=== PATIENT | male | born 1955 | race Caucasian/White ===

== ENCOUNTER 2021-01-31 11:19 | Inpatient (IN) | payer OTHER ==
[2021-01-31] MEDS ORDERED: HYDROmorphone 0.5 MG/0.5 ML SYRINGE IVP STA (11:47)
[2021-01-31] MEDS ORDERED: SODIUM CHLORIDE 0.9% 1,000 ML IV STA (11:47)
[2021-01-31] MEDS ORDERED: SODIUM CHLORIDE 0.9% 500 ML 500 ML IV STA (11:47)
[2021-01-31 12:06] LABS: Basophils % (A) 0 %; Eosinophils # (A) 0.1 k/uL (0-0.7); Eosinophils % (A) 1 %; HCT 40.9 % (39.0-53.0); HGB 14.3 gm/dL (13.0-17.5); Lymphocytes # (A) 1.7 k/uL (1.0-4.8); Lymphocytes % (A) 18 %; MCH 30.6 pg (25.0-35.0); MCV 87.4 fL (80.0-100.0); Mean Platelet Volume 6.6; Monocytes # (A) 0.6 k/uL (0-1.0); Monocytes % (A) 6 %; Neutrophils # (A) 7.1 k/uL (1.3-7.7); Neutrophils % (A) 73 %; Platelet Count 448 k/uL (150-450); RBC 4.68 m/uL (4.30-5.90); RDW 13.6 % (11.5-15.5); WBC 9.7 k/uL (3.8-10.6)
[2021-01-31] MEDS ORDERED: NALOXONE 0.4 MG/ML 1 ML VIAL IV PRN (12:11)
[2021-01-31] MEDS ORDERED: ACETAMINOPHEN TAB 325 MG TAB PO PRN (12:11)
[2021-01-31 12:15] LABS: INR 1.1 (<1.2); Prothrombin Time 11.2 sec (9.0-12.0)
--- NOTE | 2021-01-31 12:16 | ED ---
General Adult HPI - General Chief complaint: Abdominal Pain Stated complaint: Sent by dr to be admitted Time Seen by Provider: 01/31/21 11:40 Source: patient, RN notes reviewed, old records reviewed Mode of arrival: ambulatory Limitations: no limitations - History of Present Illness Initial comments: 65-year-old male presenting for evaluation of abdominal pain, poor appetite, and liver mass. This was found on outpatient testing. He was seen by the oncology office today and sent in for evaluation and treatment. He was sent for intractable abdominal pain as well as further workup needed regarding this liver mass. He has a remote history of prostate cancer. Patient denies fever. He has had both generalized as well as right upper quadrant and epigastric abdominal pain. He had outpatient imaging performed. These results are not available at the time my initial evaluation. - Related Data Allergies Allergy/AdvReac Type Severity Reaction Status Date / Time No Known Allergies Allergy Verified 01/31/21 11:37 Review of Systems ROS Statement: Those systems with pertinent positive or pertinent negative responses have been documented in the HPI. ROS Other: All systems not noted in ROS Statement are negative. Past Medical History Past Medical History: Cancer, Prostate Disorder History of Any Multi-Drug Resistant Organisms: None Reported Past Surgical History: Prostate Surgery Past Psychological History: No Psychological Hx Reported Smoking Status: Current every day smoker Past Alcohol Use History: None Reported Past Drug Use History: None Reported General Exam Limitations: no limitations General appearance: alert, in no apparent distress Head exam: Present: atraumatic, normocephalic Eye exam: Present: normal appearance, PERRL ENT exam: Present: mucous membranes dry Neck exam: Present: normal inspection. Absent: tenderness, meningismus Respiratory exam: Present: normal lung sounds bilaterally. Absent: respiratory distress, wheezes Cardiovascular Exam: Present: regular rate, normal rhythm GI/Abdominal exam: Present: soft, distended, tenderness (Right upper quadrant and epigastric). Absent: guarding, rebound Extremities exam: Present: normal inspection, normal capillary refill. Absent: pedal edema, calf tenderness Neurological exam: Present: alert, oriented X3, CN II-XII intact. Absent: motor sensory deficit Psychiatric exam: Present: normal affect, normal mood Skin exam: Present: warm, dry, intact. Absent: cyanosis, diaphoretic Course Vital Signs 01/31/21 11:34 Temperature 98.2 F Pulse Rate 91 Respiratory 20 Rate Blood Pressure 134/74 O2 Sat by Pulse 99 Oximetry Medical Decision Making - Medical Decision Making Liza covering for oncology and contacted myself prior to patient's arrival regarding plan for admission, pain control, and further workup. Patient has been admitted to Dr. Packer who is aware of the patient with oncology on consult. Laboratory testing has been obtained, results are pending. - Lab Data Result diagrams: 01/31/21 11:55 Lab Results 01/31/21 Range/Units 11:55 WBC 9.7 (3.8-10.6) k/uL RBC 4.68 (4.30-5.90) m/uL Hgb 14.3 (13.0-17.5) gm/dL Hct 40.9 (39.0-53.0) % MCV 87.4 (80.0-100.0) fL MCH 30.6 (25.0-35.0) pg MCHC 35.0 (31.0-37.0) g/dL RDW 13.6 (11.5-15.5) % Plt Count 448 (150-450) k/uL MPV 6.6 Neutrophils % 73 % Lymphocytes % 18 % Monocytes % 6 % Eosinophils % 1 % Basophils % 0 % Neutrophils # 7.1 (1.3-7.7) k/uL Lymphocytes # 1.7 (1.0-4.8) k/uL Monocytes # 0.6 (0-1.0) k/uL Eosinophils # 0.1 (0-0.7) k/uL Basophils # 0.0 (0-0.2) k/uL Disposition Clinical Impression: Abdominal pain, Dehydration, Liver mass Disposition: ADMITTED IP TO THIS HOSP Condition: Stable Is patient prescribed a controlled substance at d/c from ED?: No Referrals: Stephanie Salcedo DO [Primary Care Provider] - 1-2 days Decision to Admit Reason: Admit from EC Decision Date: 01/31/21 Decision Time: 12:16
[2021-01-31 12:30] LABS: ALT 8 U/L (4-49); AST 26 U/L (17-59); African American GFR (CKD) >90 (>60 ml/min/1.73 sqM); Albumin 4.1 g/dL (3.5-5.0); Alkaline Phosphatase 100 U/L (38-126); Amylase 61 U/L (30-110); Anion Gap 13 mmol/L; Blood Urea Nitrogen 17 mg/dL (9-20); Calcium 9.7 mg/dL (8.4-10.2); Carbon Dioxide 26 mmol/L (22-30); Chloride 93 mmol/L (98-107); Glucose 79 mg/dL (74-99); Lipase 53 U/L (23-300); Non-African American GFR(CKD) >90 (>60 ml/min/1.73 sqM); Potassium 4.7 mmol/L (3.5-5.1); Sodium 132 mmol/L (137-145); Total Bilirubin 0.6 mg/dL (0.2-1.3); Total Protein 7.6 g/dL (6.3-8.2)
[2021-01-31] MEDS: SODIUM CHLORIDE 0.9% 1,000 ML IV SCH ×2 (12:37→21:20)
[2021-01-31] MEDS ORDERED: ALPRAZolam 0.25 MG TAB PO PRN (14:11)
[2021-01-31] MEDS ORDERED: TEMAZEPAM 15 MG CAP PO PRN (14:11)
[2021-01-31] MEDS ORDERED: RX INFO: IV CONTRAST WAS GIVEN 1 EACH MISC MISCELLANE PRN (15:01)
--- NOTE | 2021-01-31 15:07 | P.CONS ---
History of Present Illness - Reason for Consult Consult date: 01/31/21 Metastatic Cancer Requesting physician: Bubba Mckeon - Chief Complaint Intractable pain, nausea and constipation - History of Present Illness Mr. Wheatley is a 65 year old patient who was referred to Dr. Kevon Cohen at our [facility] office for evaluation of prostate cancer. On his initial visit he presented with diffuse abdominal pain, not controlled on current home regimen for pain. Admitted to constipation and nausea. Further details regarding his history of prostate cancer will follow after I receive records from [facility]. He did have a recent CT scan abdomen and Pelvis at [facility] (also requested) which revealed per Dr. Cohen left adrenal mass and adenopathy in abdomen. He has been admitted for further staging, biopsy for tissue diagnosis and pain management. Discussed in detail with primary team and with Emergency Department attending. Review of Systems All systems: negative Constitutional: Reports as per HPI Past Medical History Past Medical History: Cancer, Prostate Disorder History of Any Multi-Drug Resistant Organisms: None Reported Past Surgical History: Prostate Surgery Past Psychological History: No Psychological Hx Reported Smoking Status: Current every day smoker Past Alcohol Use History: None Reported Past Drug Use History: None Reported - Past Family History Father Family Medical History: Cancer Additional Family Medical History / Comment(s): prostate cancer Brother(s) Family Medical History: Cancer Additional Family Medical History / Comment(s): prostate cancer Medications and Allergies Home Medications Medication Instructions Recorded Confirmed Type traMADol HCl [Ultram] 50 mg PO BID@1500,2100 01/31/21 01/31/21 History traMADol HCl [Ultram] 100 mg PO DAILY 01/31/21 01/31/21 History Allergies Allergy/AdvReac Type Severity Reaction Status Date / Time No Known Allergies Allergy Verified 01/31/21 13:11 Physical Exam Vitals: Vital Signs Temp Pulse Resp BP Pulse Ox 01/31/21 11:34 98.2 F 91 20 134/74 99 Intake and Output 01/31/21 01/31/21 01/31/21 06:59 14:59 22:59 Other: Weight 58.06 kg - Constitutional General appearance: cooperative, no acute distress - EENT Eyes: EOMI ENT: hard of hearing, NA/AT - Respiratory Respiratory: bilateral: diminished - Gastrointestinal General gastrointestinal: soft, tenderness - Integumentary Integumentary: pale - Neurologic Neurologic: CNII-XII intact - Musculoskeletal Musculoskeletal: generalized weakness - Psychiatric Psychiatric: A&O x's 3 Results CBC & Chem 7: 02/01/21 04:50 02/01/21 04:50 Labs: Abnormal Lab Results - Last 24 Hours (Table) 01/31/21 Range/Units 11:55 Sodium 132 L (137-145) mmol/L Chloride 93 L (98-107) mmol/L CT scan - chest: report reviewed Assessment and Plan (1) Constipation Current Visit: Yes Status: Acute Code(s): K59.00 - CONSTIPATION, UNSPECIFIED SNOMED Code(s): 97740844 (2) Left adrenal mass Current Visit: Yes Status: Acute Code(s): E27.8 - OTHER SPECIFIED DISORDERS OF ADRENAL GLAND SNOMED Code(s): 689942119 (3) Prostate CA Current Visit: Yes Status: Acute Code(s): C61 - MALIGNANT NEOPLASM OF PROSTATE SNOMED Code(s): 756609563 (4) Abdominal pain Current Visit: Yes Status: Acute Code(s): R10.9 - UNSPECIFIED ABDOMINAL PAIN SNOMED Code(s): 44993199 (5) Lung mass Current Visit: Yes Status: Acute Code(s): R91.8 - OTHER NONSPECIFIC ABNORMAL FINDING OF LUNG FIELD SNOMED Code(s): 138030034 Plan: Pallaiitive Pain Controll and scheduled bowel regimen for narcotic induced constipation Biopsy of left adrenal mass - IR COnsult Placed CT CHest for completed staging IV DIlaudid for fast acting at this time and Fentanyl long acting patch started CT scan of chest was reviewed: Right suprahilar 5x5cm mass revealed as well as thoracic adenopathy. Interventional radiology has been consulted, he has been made NPO after midnight and a biopsy of left adrenal mass and lung mass (primary importance for tissue biopsy) has been requested for Thursday. With history of prostate cancer obtaining biopsy of adrenal met would be beneficial to confirm metastatic malignancy source if a diagnosis of two primary cancers found. An MRI of the brain has also been ordered.
--- NOTE | 2021-01-31 16:31 | CT ---
EXAMINATION TYPE: CT chest w con DATE OF EXAM: 01/31/2021 COMPARISON: No comparison studies at this location. HISTORY: no chest complaints, staging metastatic cancer CT DLP: 262 mGycm, Automated exposure control for dose reduction was used. CONTRAST: Performed injected with 100 mL of Isovue 300. TECHNIQUE: Axial images were obtained at 5 mm thick sections. Reconstructed images are reviewed on [employer] computer in the coronal plane. FINDINGS: Portion of the thyroid visualized is normal. There is a 0.7 cm nodule in the lateral left apex. Note is made of a calcified nodule at the superior left medial lung apex. There is a spiculated mass measuring 3.9 x 5.0 x 5.2 cm in the right suprahilar soft tissue abnormali ty is seen in the hilar region can be related to direct extension or lymphadenopathy region. There is a 1.1 cm enlarged pretracheal lymph node. Prominent aortopulmonic window lymph node is pres ent measuring 1.2 cm. Subcarinal lymph node is present measuring 1.0 cm. Right hilar adenopathy is pr esent. The ascending aorta diameter at the level of the main pulmonary artery is 3.5 cm. The main pu lmonary artery diameter at the bifurcation is 2.[address] sections are obtained through the upper abdomen. Left adrenal gland is enlarged measuring 2.1 cm. This may extend towards the superior mesenteric artery. Right adrenal gland has some mild pro minent superiorly. Retrocrural adenopathy is present, the largest measures 0.9 cm. Some periaortic a denopathy appears to be present. IMPRESSIONS: 1. Large right suprahilar mass with multiple mediastinal and intra-abdominal periaortic lymph nodes s uspicious for neoplasm. Metastasis to the right adrenal gland likely present. Direct extension or me tastasis to the right hilar lymph nodes may be present. Left apical nodule may be a metastatic lesion . PET/CT recommended for additional workup. A [place] level critical message alert has been initiated for Cristo Packer MD via the [employer] Critical Results System on 01/31/2021 4:25 PM. This message alert has been sent to Cristo Packer MD via the preferences provided by the clinician for the receipt of Radiology Critical Findings. Message ID [id number].
[2021-01-31] MEDS: HYDROmorphone 0.5 MG/0.5 ML SYRINGE IVP PRN (16:41)
--- NOTE | 2021-01-31 16:47 | HP ---
HISTORY AND PHYSICAL DATE OF SERVICE: 01/31/2021 CHIEF COMPLAINTS: Abdominal pain. HISTORY OF PRESENT ILLNESS: This 65-year-old gentleman with a past medical history of multiple medical problems, including prostate disorder and prostate cancer and surgery. Recently was suspected to have malignancy and possibly with mets with possibly primary from pancreatitis. The patient is followed by Dr. Cohen in the outpatient setting, and the patient went to Dr. Cohen's office today. The patient was supposed to have an outpatient PET scan also. Dr. Cohen recommended biopsy of the liver lesion and the patient is being directed to [facility] for further evaluation and treatment of the pain issues and also to arrange the liver biopsy as well. There is no history of fever, rigors. No headache, loss of consciousness, seizures. PAST MEDICAL HISTORY: History of prostate cancer and surgery. MEDICATIONS ARE: Ultram 50 mg p.o. b.i.d. ALLERGIES: None. FAMILY HISTORY: No history of heart disease or strokes in the family. SOCIAL HISTORY: History of smoking. No history of alcohol intake. REVIEW OF SYSTEMS: ENT: No diminished vision or hearing. CARDIOVASCULAR: No angina or palpitations. RESPIRATORY: No cough. GI: As mentioned earlier. : As mentioned earlier. NERVOUS SYSTEM: No numbness or weakness. ALLERGY/IMMUNOLOGY: No asthma or hayfever. MUSCULOSKELETAL: As mentioned earlier. HEMATOLOGY: No history of anemia. ENDOCRINE: No history of diabetes or hypothyroidism. CONSTITUTIONAL: As mentioned earlier. DERMATOLOGY: Negative. RHEUMATOLOGY: Negative. PSYCHIATRY: As mentioned earlier. ONCOLOGY: As mentioned earlier. PHYSICAL EXAMINATION: GENERAL: Patient is alert and oriented times three. VITAL SIGNS: Pulse 91, blood pressure 134/74, respirations 20, temperature 98.2, pulse ox 99% on room air. HEENT: Conjunctivae normal. Oral mucosa moist. NECK: No jugular venous distention. No carotid bruits. No lymph node enlargement. RESPIRATORY: Breath sounds diminished at the bases. No rhonchi, no crackles. HEART: S1 and S2, muffled. ABDOMEN: Soft. Healed scar around the umbilicus present, otherwise, mild diffuse tenderness in the epigastrium. Liver is palpable. No other masses palpable. No ascites. Bowel sounds present. EXTREMITIES: No edema, no swelling. NERVOUS: Higher functions as mentioned earlier. Moves all four limbs. No focal motor or sensory deficits. LYMPHATICS: No lymph nodes palpable in the neck or axillae. SKIN: No rashes. JOINTS: No active deforming arthropathy. LABS: CBC within normal limits and INR is 1.1, sodium 132. ASSESSMENT: 1. Abdominal pain with possibly metastatic malignancy with liver lesions, rule out pancreatic primary. Possible liver biopsy. 2. History of prostate cancer and surgery. 3. Hyponatremia. 4. History of nicotine dependence. 5. FULL CODE. RECOMMENDATION AND DISCUSSION: This 65-year-old gentleman who presented with multiple complex medical issues, we will monitor the patient closely. Continue the current medications, symptomatic treatment. Pain management. Hematology/Oncology evaluation. Possible liver biopsy tomorrow. Otherwise prognosis guarded because of multiple complex medical issues. Further recommendations to follow. MMODL / IJN: [id number] /
[2021-01-31] MEDS: HEPARIN SODIUM,PORCINE/PF 5,000 UNIT/0.5 ML SYRINGE SQ SCH (21:45)
[2021-01-31] MEDS: HYDROcodone/APAP 5-325MG 1 EACH TAB PO PRN (21:47)
[2021-01-31] MEDS: SENNOSIDES-DOCUSATE SODIUM 1 EACH TAB PO SCH (21:48)
[2021-02-01 05:02] LABS: Basophils % (A) 1 %; Eosinophils # (A) 0.2 k/uL (0-0.7); Eosinophils % (A) 2 %; HGB 13.3 gm/dL (13.0-17.5); Lymphocytes # (A) 1.7 k/uL (1.0-4.8); Lymphocytes % (A) 20 %; MCH 30.7 pg (25.0-35.0); MCV 87.9 fL (80.0-100.0); Mean Platelet Volume 6.6; Monocytes # (A) 0.9 k/uL (0-1.0); Monocytes % (A) 10 %; Neutrophils # (A) 5.6 k/uL (1.3-7.7); Neutrophils % (A) 66 %; Platelet Count 364 k/uL (150-450); RBC 4.33 m/uL (4.30-5.90); RDW 13.4 % (11.5-15.5); WBC 8.5 k/uL (3.8-10.6)
[2021-02-01 05:48] LABS: Appearance,Urine Clear (Clear); Bilirubin,Urine Negative (Negative); Blood,Urine Negative (Negative); Color,Urine Yellow; Glucose,Urine (UA) Negative (Negative); Ketones,Urine 2+ (Negative); Leukocyte Esterase,Urine Negative (Negative); Nitrite,Urine Negative (Negative); PH, Urine 5.5 (5.0-8.0); Protein,Urine Negative (Negative); Urobilinogen,Urine <2.0 mg/dL (<2.0)
[2021-02-01] MEDS: SODIUM CHLORIDE 0.9% 1,000 ML IV SCH (08:26)
[2021-02-01] MEDS: HEPARIN SODIUM,PORCINE/PF 5,000 UNIT/0.5 ML SYRINGE SQ SCH ×2 (08:27→20:02)
[2021-02-01] MEDS: PANTOPRAZOLE 40 MG/10 ML VIAL IV SCH (08:28)
[2021-02-01] MEDS: polyethylene glycoL 3350 17 GM POWD.PACK PO SCH (08:28)
[2021-02-01] MEDS: SENNOSIDES-DOCUSATE SODIUM 1 EACH TAB PO SCH ×2 (08:28→20:08)
[2021-02-01 09:53] LABS: African American GFR (CKD) 123.1 (60.0-200.0); Albumin 3.4 g/dL (3.80-4.90); Albumin/Globulin Ratio 1.31 (1.60-3.17); Anion Gap 9.7 mmol/L (4.00-12.00); BUN/Creat Ratio 16.67 Ratio (12.00-20.00); Calcium 8.4 mg/dL (8.7-10.3); Carbon Dioxide 26.3 mmol/L (21.6-31.8); Globulin 2.6 g/dL (1.6-3.3); Magnesium 1.6 mg/dL (1.5-2.4); Non-African American GFR(CKD) 106.3 (60.0-200.0); Potassium 4.2 mmol/L (3.5-5.5); Total Bilirubin 0.4 mg/dL (0.2-1.2)
--- NOTE | 2021-02-01 11:38 | MR ---
EXAMINATION TYPE: MR brain wo con DATE OF EXAM: 02/01/2021 COMPARISON: No brain comparisons. Correlative study includes CT chest 01/31/2021. HISTORY: Staging for likely metastatic Lung Cancer TECHNIQUE: Multiplanar, multisequence images of the brain and brainstem is performed without IV contrast. Patien t indicates exam prior to gadolinium administration and postcontrast imaging, unable to continue due to claustrophobia. FINDINGS: There is motion artifact. Patient indicated exam prior to gadolinium administration and postcontrast imaging due to claustrophobia. Lack of IV contrast limits evaluation for metastases. Within the left frontal lobe there is a 2.0 x 1.8 cm lesion with peripheral restricted diffusion, and marked surrounding vasogenic edema . There is a 6 mm T2 hyperintense lesion of the left temporal lob e with restricted diffusion (501:17, 305:136). There is a 7 mm T2 hyperintense lesion of the right fr ontal lobe with restricted diffusion (501:21, 305:168). There is vasogenic edema of the left temporo- occipital region without definitive lesion, although the cortex in this region is somewhat abnormal a nd T2 weighted imaging (401:13). There is also T2 hyperintense edema of the right cerebellum without discrete lesion. There are moderate periventricular, subcortical, and deep white matter T2 FLAIR hyperintense foci, wh ich do not demonstrate restricted diffusion. No extra-axial fluid collection. No ventriculomegaly or midline shift. Midline structures demonstrate normal morphology. Sinuses and mastoid air cells are clear. Globes are grossly symmetric. IMPRESSION: 1. Examination not completed due to patient claustrophobia. No postcontrast imaging was obtained. 2. Multiple regions most likely representing metastases are seen. There are masses, vasogenic edema, and foci of T2 hyperintensity with restricted diffusion as above. 3. Recommend completion of baseline postcontrast imaging of the brain for future comparisons and asse ssment of treatment response.
[2021-02-01 12:02] VITALS: BMI 20.3
--- NOTE | 2021-02-01 15:31 | P.OP ---
Date of Procedure: 02/01/21 Preoperative Diagnosis: left adrenal mass Postoperative Diagnosis: same Procedure(s) Performed: CT-GUIDED LEFT ADRENAL MASS BIOPSY Anesthesia: local Surgeon: Susan Molina Estimated Blood Loss (ml): 1 Pathology: other (HISTOPATHOLOGY) Condition: stable Disposition: floor Description of Procedure: LEFT ADRENAL MASS TARGETED FOR CT-GUIDED CORE BIOPSY. 2 18G CORE SPECIMENS OBTAINED.
--- NOTE | 2021-02-01 16:14 | CT ---
EXAMINATION TYPE: CT biopsy adrenal gland DATE OF EXAM: 02/01/2021 HISTORY: Left adrenal mass. Lung masses. History of prostate cancer. COMPARISON: CT chest 01/31/2021. Informed consent was obtained by Dr. Susan Molina prior to procedure. Risks, benefits, and altern atives discussed with the patient. All patient questions were answered. Patient was originally placed prone. Preliminary CT imaging demonstrated left adrenal mass with signi ficant overlying lung. The patient was then placed left lateral decubitus. Preliminary CT imaging dem onstrated a safer course with less overlying lung to the left adrenal mass. The skin overlying a suit able path to the left adrenal mass was localized using CT and the overlying skin was prepped and drap ed utilizing maximal barrier technique. Lidocaine used for local anesthesia. A small skin brissa was ma de with a scalpel. Using CT guidance, access was gained to the lesion with a 17-gauge introducer need le. The stylet was removed and an 18-gauge coaxial core biopsy needle was advanced into the left adre nal mass. Core specimen(s) submitted in formalin for histopathology. 2 pass(es) performed in all. All needles were removed and sterile bandage was applied. Postprocedure CT imaging demonstrated no evidence of significant hemorrhage or pneumothorax. Patient tolerated procedure well with no immediate complications. Patient is discharged from the radiology de partment, back to floor, in stable condition. IMPRESSION: SUCCESSFUL CT GUIDED LEFT ADRENAL MASS 18G CORE BIOPSY. PATHOLOGY PENDING.
[2021-02-01] MEDS: HYDROcodone/APAP 5-325MG 1 EACH TAB PO PRN (19:12)
--- NOTE | 2021-02-01 20:06 | PN ---
PROGRESS NOTE DATE OF SERVICE: 02/01/2021 This 65-year-old gentleman with abdominal pain has multiple lesions. Patient also has chest lesions in the CT scan chest, also. The patient underwent a CT-guided needle biopsy by Radiology. Final pathology is pending at this time. No chest pain. No palpitations. No fever. PHYSICAL EXAMINATION: Alert and oriented x4. Pulse 61, blood pressure 140/60, respiration 14 temperature is 98 degrees, pulse ox 98% on room air. HEENT: Conjunctivae normal. CARDIAC: Murmur. RESPIRATION: Breath sounds diminished at the bases. No rhonchi. No crackles. ABDOMEN: Soft. NEUROLOGIC: Nonfocal. LAB STUDIES: At this time shows WBC 8.2, hemoglobin 13.2, sodium 133. ASSESSMENT: 1. Abdominal pain with possible metastatic malignancy, primary unknown. 2. Adrenal mass, status post adrenal biopsy. 3. Right lung lesion and rule out primary malignancy or METS. 4. History of prostate cancer surgery. 5. Hyponatremia. 6. History nicotine dependence. 7. FULL CODE. RECOMMENDATIONS AND DISCUSSION: I recommend to continue current medications, symptomatic treatment. Otherwise, adrenal biopsy has been done. Discussed with Dr. Matta. We will continue to monitor. Depending upon the biopsy report, the patient might also need a radiology-guided lung biopsy according to Dr. Matta, but he will follow the patient. Prognosis guarded. Further recommendations to follow. Continue the pain management MMODL / SANDIEN: [id number] /
--- NOTE | 2021-02-01 20:29 | P.PN ---
Subjective Progress Note Date: 02/01/21 Principal diagnosis: Suspicion for metastatic cancer Adrenal mass biopsy today, await results. Suspect a metastatic lung cancer, if this reveals a different primary will need biopsy of lung. Objective - Vital Signs Vital signs: Vital Signs Temp 98 F 02/01/21 15:42 Pulse 73 02/01/21 18:00 Resp 14 02/01/21 15:42 BP 146/71 02/01/21 18:00 Pulse Ox 94 L 02/01/21 16:42 Intake & Output 02/01/21 02/01/21 02/02/21 06:59 18:59 06:59 Intake Total 650 900 Output Total 500 Balance 150 900 Weight 58.06 kg 58.06 kg Intake: Intake, IV Titration 650 900 Amount Sodium Chloride 0.9% 1, 650 900 000 ml @ 75 mls/hr IV . [id number] [facility] Rx#:[id number] Output: Urine 500 Other: Voiding Method Urinal Urinal - Exam - Constitutional General appearance: cooperative, no acute distress - EENT Eyes: EOMI ENT: hard of hearing, NA/AT - Respiratory Respiratory: bilateral: diminished - Gastrointestinal General gastrointestinal: soft, tenderness - Integumentary Integumentary: pale - Neurologic Neurologic: CNII-XII intact - Musculoskeletal Musculoskeletal: generalized weakness - Psychiatric Psychiatric: A&O x's - Labs CBC & Chem 7: 02/01/21 04:50 02/01/21 04:50 Labs: Abnormal Lab Results - Last 24 Hours (Table) 02/01/21 02/01/21 02/01/21 Range/Units 04:50 04:50 05:00 Hct 38.0 L (39.0-53.0) % Sodium 133 L (135-145) mmol/L Osmolality 276 L (280-301) mosm/kg Calcium 8.4 L (8.7-10.3) mg/dL ALT 8 L (10-49) U/L Total Protein 6.0 L (6.2-8.2) g/dL Albumin 3.40 L (3.80-4.90) g/dL Albumin/Globulin Ratio 1.31 L (1.60-3.17) g/dL Urine Ketones 2+ H (Negative) Assessment and Plan (1) Constipation Current Visit: Yes Status: Acute Code(s): K59.00 - CONSTIPATION, UNSPECIFIED SNOMED Code(s): 00782712 (2) Left adrenal mass Current Visit: Yes Status: Acute Code(s): E27.8 - OTHER SPECIFIED DISORDERS OF ADRENAL GLAND SNOMED Code(s): 304692871 (3) Prostate CA Current Visit: Yes Status: Acute Code(s): C61 - MALIGNANT NEOPLASM OF PROSTATE SNOMED Code(s): 194359632 (4) Abdominal pain Current Visit: Yes Status: Acute Code(s): R10.9 - UNSPECIFIED ABDOMINAL PAIN SNOMED Code(s): 63207517 (5) Lung mass Current Visit: Yes Status: Acute Code(s): R91.8 - OTHER NONSPECIFIC ABNORMAL FINDING OF LUNG FIELD SNOMED Code(s): 788658481 Plan: Pallaiitive Pain Controll and scheduled bowel regimen for narcotic induced constipation Biopsy of left adrenal mass - IR COnsult Placed CT CHest for completed staging IV DIlaudid for fast acting at this time and Fentanyl long acting patch started CT scan of chest was reviewed: Right suprahilar 5x5cm mass revealed as well as thoracic adenopathy. Interventional radiology has been consulted, he has been made NPO after midnight and a biopsy of left adrenal mass and lung mass (primary importance for tissue biopsy) has been requested for Thursday. With history of prostate cancer obtaining biopsy of adrenal met would be beneficial to confirm metastatic malignancy source if a diagnosis of two primary cancers found. An MRI of the brain has also been ordered. Status POst biopsy of Adrenal Mass today Re-check PSA Await path to determine if further tissue is needed of lung mass Physician Attest: I have completed the full history and physical and agree with above, dictated as a ascribe.
[2021-02-01] MEDS ORDERED: DEXAMETHASONE SOD PHOSPHATE 10 MG/ML 1 ML VIAL IV STA (20:35)
[2021-02-01] MEDS ORDERED: LORazepam 2 MG/ML INJ IV PRN (23:24)
[2021-02-02] MEDS: DEXAMETHASONE SOD PHOSPHATE 4 MG/ML 1 ML VIAL IV SCH ×4 (00:33→18:00)
[2021-02-02] MEDS: SODIUM CHLORIDE 0.9% 1,000 ML IV SCH (05:19)
[2021-02-02 07:30] LABS: Glucose,Whole Blood 117 mg/dL (75-99)
[2021-02-02] MEDS ORDERED: ONDANSETRON 4 MG/2 ML VIAL IVP PRN (08:32)
[2021-02-02] MEDS ORDERED: ONDANSETRON 4 MG/2 ML VIAL IVP STA (08:32)
[2021-02-02] MEDS: HEPARIN SODIUM,PORCINE/PF 5,000 UNIT/0.5 ML SYRINGE SQ SCH ×2 (08:36→21:41)
[2021-02-02] MEDS: SENNOSIDES-DOCUSATE SODIUM 1 EACH TAB PO SCH ×2 (08:36→21:41)
[2021-02-02] MEDS: PANTOPRAZOLE 40 MG/10 ML VIAL IV SCH (08:37)
[2021-02-02] MEDS: polyethylene glycoL 3350 17 GM POWD.PACK PO SCH (08:37)
--- NOTE | 2021-02-02 10:25 | MR ---
EXAMINATION TYPE: MR brain w con DATE OF EXAM: 02/02/2021 COMPARISON: 02/01/2021 HISTORY: Brain lesions CONTRAST: Performed utilizing 6 ml mL intravenous Gadavist gadolinium contrast. TECHNIQUE: Multiplanar, multiecho imaging on a 3.0 Maeve magnet is performed through the brain. Stud y is performed within 24 hours of arrival to the hospital. The craniovertebral junction is normal. The pituitary is not well visualized on this exam. Exam is limited with only post contrast axial coronal and sagittal plane images. There is a 1.0 x 1.4 x 1.4 cm enhancing lesion within the right cerebellum adjacent to the cerebellar peduncle. Hypointensity is adjacent T1 sequences suggesting some vasogenic edema. There is a dural based 0.9 x 1.3 x 1.2 cm enhancing lesion in the left parietal-occipital junction. S urrounding vasogenic edema appears to be present. This may be dural based. There is a very subtle enhancing lesion within the left limbus, series 701 image 15. Significant vaso genic edema is not identified. Similar lesion measuring 0.7 cm may be within the left frontal region. Series 701 image 20. A subtle area of enhancement may be within the leptomeningeal region on the rig ht measuring 0.7 cm best visualized series 801 image 12, series 901 image 17. A subtle 0.4 cm enhanci ng nodule may be within the posterior left parietal region. Series 701 image 17. There is a large ring-enhancing lesion measuring 2.1 x 2.0 x 2.5 cm within the left frontal lobe. Ser ies 701 image 19. Extensive vasogenic edema is adjacent. IMPRESSIONS: 1. Multiple bilateral supratentorial and infratentorial enhancing lesions discussed above compatible with metastatic disease
--- NOTE | 2021-02-02 11:10 | P.CNNES ---
History of Present Illness Consult date: 02/01/21 Requesting physician: Liza Ferguson Reason for Consult: Metastatic cancer through brain History of Present Illness: Patient is a 65-year-old male otherwise healthy, came to the hospital for evaluation of abdominal pain, poor appetite, liver mass. This was found on outpatient testing. He was seen by the oncology office today and sent for an evaluation and treatment of abdominal mass. Patient has a remote history of prostate cancer. Patient states that he has several pain in the abdomen in the past 1-1/2-2 months. He felt something was wrong with his body. He went to [facility] in [place] underwent computed tomography scan of the abdomen which according to the patient was negative. However per oncology report, it revealed left adrenal mass and adenopathy in the abdomen. He was referred for further st aging, biopsy for tissue diagnosis and pain management. Patient had undergone CT-guided adrenal biopsy today. Computed tomography scan of the chest revealed large right suprahilar mass with multiple mediastinal and intra-abdominal periaortic lymph nodes suspicious for neoplasm. Metastasis to the right adrenal gland likely present. Direct extension of metastasis to the right hilar lymph nodes may be present. Left apical not you may be a metastatic lesion. PET/CT is recommended for additional workup. Patient subsequently underwent MRI of the brain without contrast revealed multiple lesions most likely representing metastasis. These are masses, vasogenic edema and foci of T2 hyperintensity with restricted diffusion. Patient states that she does feel as tired and confused. Denies any headache, no diplopia and no nausea vomiting. Abdominal pain is still there. He just generalized abdominal pain and goes to the chest. Patient denies hypertension, no diabetes. He smoked 1 pack per day since age 22, still smokes. He does not drink alcohol. Review of Systems Positive for weight loss. Denies any fever or chills. Denies headache any problem with the vision, hoarseness, sore throat, dysphagia. Patient complains of abdominal pain, that extends to the chest. No shortness of breath wheezing. Denies diarrhea, has constipation. Denies anxiety depression. Denies problem with control of bowels or bladder. All other review of systems noncontributory. Denies balance issues. Past Medical History Past Medical History: Cancer, Prostate Disorder Additional Past Medical History / Comment(s): prostate cancer no chemo or radiation 2018, History of Any Multi-Drug Resistant Organisms: None Reported Past Surgical History: Prostate Surgery Additional Past Surgical History / Comment(s): prostatectomy Past Anesthesia/Blood Transfusion Reactions: No Reported Reaction Past Psychological History: No Psychological Hx Reported Smoking Status: Current every day smoker Past Alcohol Use History: None Reported Past Drug Use History: None Reported - Past Family History Father Family Medical History: Cancer Additional Family Medical History / Comment(s): prostate cancer Brother(s) Family Medical History: Cancer Additional Family Medical History / Comment(s): prostate cancer Medications and Allergies Home Medications Medication Instructions Recorded Confirmed Type traMADol HCl [Ultram] 50 mg PO BID@1500,2100 01/31/21 01/31/21 History traMADol HCl [Ultram] 100 mg PO DAILY 01/31/21 01/31/21 History Allergies Allergy/AdvReac Type Severity Reaction Status Date / Time No Known Allergies Allergy Verified 01/31/21 13:11 Physical Examination - Vital Signs Vital Signs: Vital Signs Temp Pulse Pulse Resp BP Pulse Ox 02/01/21 19:30 97.2 F L 66 20 139/96 99 02/01/21 18:00 73 146/71 02/01/21 17:30 61 128/58 02/01/21 17:03 127/60 02/01/21 16:42 61 141/59 94 L 02/01/21 16:30 147/56 02/01/21 16:12 59 L 147/56 02/01/21 15:57 61 149/68 99 02/01/21 15:42 98 F 64 14 153/72 98 02/01/21 15:30 70 16 135/89 98 02/01/21 15:02 65 18 157/99 98 02/01/21 14:40 68 18 168/86 97 02/01/21 12:40 98.1 F 64 12 126/58 97 02/01/21 05:01 97.6 F 58 L 16 151/73 98 Intake and Output 02/01/21 02/01/21 02/01/21 06:59 14:59 22:59 Intake Total 650 1000 Output Total 500 Balance 150 1000 Intake: Intake, IV Titration 650 900 Amount Sodium Chloride 0.9% 1, 650 900 000 ml @ 75 mls/hr IV . [id number] [facility] Rx#:[id number] Oral 100 Output: Urine 500 Other: Voiding Method Urinal Weight 58.06 kg Patient is an elderly male, very pleasant, in no acute distress. Francoise ent was asleep when I came to see the patient. On waking up, he was slightly slow mentation, prolonged latency time to answer questions. However then he became more alert. Patient is alert awake oriented to time place and person. Patient has some word finding problem. She could not name the current president. After giving some prompts, he did recall the name. He can name and repeat very well. Knows it is January and the year . Could not recall the name of the hospital. Speech and language functions are normal. Attention, concentration and fund of knowledge is adequate. On cranial examination, pupils are round and reacting to light, visual moore are full on confrontation, extraocular muscles are intact with no nystagmus. Face is symmetric, tongue protrudes to the midline. Palatal elevation and sensation normal, hearing and shoulder shrug normal, facial sensation normal. Shoulder shrug normal. On muscle strength testing, there is right pronator drift and the strength is n ormal in arms and legs distally and proximally, except right shoulder which is weak from ? Shoulder issue. Deep tendon reflexes are 2 in the upper limbs, 2 in the lower limbs and plantars downgoing. Sensory to touch is equal with no neglect. Cerebellar function showed no ataxia for [id number] testing. No dysdiadochokinesia. Tone and bulk of muscles normal. Gait not checked. On general examination, there is no carotid bruit or murmur, S1-S2 audible. Abdomen is soft nontender. Chest is clear. Peripheral pulses are present. No edema. Results - Laboratory Findings CBC and BMP: 02/01/21 04:50 02/01/21 04:50 Abnormal Lab Findings: Abnormal Labs 01/31/21 02/01/21 02/01/21 11:55 04:50 04:50 Hct 38.0 L Sodium 132 L 133 L Chloride 93 L Osmolality 276 L Calcium 8.4 L ALT 8 L Total Protein 6.0 L Albumin 3.40 L Albumin/Globulin Ratio 1.31 L Urine Ketones 02/01/21 05:00 Hct Sodium Chloride Osmolality Calcium ALT Total Protein Albumin Albumin/Globulin Ratio Urine Ketones 2+ H Assessment and Plan Assessment: * Probable metastatic cancer with cerebral metastasis. Primary possibly lung cancer. * Status post adrenal mass biopsy * Tobacco use * Weight loss Plan: * Patient has probable cerebral metastasis. Discussed with patient about results of MRI. Encouraged to complete the MRI of brain with contrast for better evaluation of the extent of cerebral disease. * Patient has been started on Decadron 4 mg every 6 hours. * Patient has risk for seizures due to cerebral metastasis. We will discuss about empirically starting Keppra 500 mg twice a day for seizure prophylaxis as upon MRI brain with contrast results. * Further recommendations awaiting from oncology. * Await adrenal mass biopsy results. * We will follow.
[2021-02-02 12:18] LABS: Glucose,Whole Blood 222 mg/dL (75-99)
[2021-02-02] MEDS: INSULIN ASPART (NovoLOG) 100 UNIT/ML VIAL SQ SCH ×3 (12:52→21:41)
[2021-02-02 17:51] LABS: Glucose,Whole Blood 185 mg/dL (75-99)
[2021-02-02] MEDS: NICOTINE 14MG/24HR PATCH TRANSDERM SCH (18:01)
--- NOTE | 2021-02-02 19:57 | PN ---
PROGRESS NOTE DATE OF SERVICE: 02/02/2021 INTERVAL HISTORY: A 65-year-old gentleman who was admitted for evaluation of multiple METS, has abdominal pain. The patient had adrenal mass and adrenal biopsy. The patient also had a chest lesion. The biopsy results are pending at this time. Patient also had a brain MRI, which is done with contrast today and the brain MRI showed multiple bilateral supratentorial, infratentorial enhancing lesions compatible with metastatic disease. The patient is being closely monitored. Dr. Matta is following the patient closely. The patient is started on dexamethasone. PAST MEDICAL HISTORY: Reviewed. REVIEW OF SYSTEMS: CARDIOVASCULAR SYSTEM: No angina or palpitations. RESPIRATORY SYSTEM: As mentioned earlier. GI: No nausea, vomiting. : No dysuria. NERVOUS SYSTEM: No numbness, weakness. CURRENT MEDICATIONS: Reviewed include Tylenol, Xanax, Decadron, Duragesic patch, Dilaudid, NovoLog doses reviewed. PHYSICAL EXAMINATION: Patient is alert, oriented x3. Pulse 89, blood pressure 129/72, respiration 14, temperature 98.2, pulse ox 97% on room air. HEENT: Conjunctivae normal. NECK: No JVD. RESPIRATION: Breath sounds diminished at the bases, no rhonchi. ABDOMEN: Soft, nontender. LEGS: No edema, no swelling. NERVOUS: Diffusely weak. LABS: WBC 8.2, hemoglobin 13.3, glucose 117 and 222. ASSESSMENT: 1. Abdominal pain with possible MRSA, metastatic malignancy, primary unknown. 2. Adrenal mass, status post adrenal biopsy. 3. Multiple supratentorial infratentorial enhancing lesions in the MRI showing possibly brain METS. 4. Right lung lesion, possible primary malignancy, rule out METS. 5. 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 6. History of prostate cancer surgery. 7. Hyponatremia. 8. History of nicotine dependence. 9. FULL CODE. RECOMMENDATIONS AND DISCUSSION: I recommend to continue current management and will monitor the patient. Repeat labs continue the pain medication. Continue with dexamethasone. Otherwise, monitor closely with Hematology/Oncology. MRI scan reviewed and will stop the IV fluids. DVT prophylaxis. Prognosis guarded because of multiple complex medical issues. Further recommendations to follow. MMODL / IJN: [id number] /
[2021-02-02 20:36] LABS: ALT 10 U/L (4-49); AST 23 U/L (17-59); African American GFR (CKD) >90 (>60 ml/min/1.73 sqM); Albumin 3.3 g/dL (3.5-5.0); Albumin/Globulin Ratio 1.1; Alkaline Phosphatase 84 U/L (38-126); Anion Gap 6 mmol/L; Blood Urea Nitrogen 17 mg/dL (9-20); Calcium 9.1 mg/dL (8.4-10.2); Carbon Dioxide 30 mmol/L (22-30); Chloride 97 mmol/L (98-107); Glucose 180 mg/dL (74-99); Non-African American GFR(CKD) >90 (>60 ml/min/1.73 sqM); Potassium 4.4 mmol/L (3.5-5.1); Sodium 133 mmol/L (137-145); Total Bilirubin 0.2 mg/dL (0.2-1.3); Total Protein 6.3 g/dL (6.3-8.2)
--- NOTE | 2021-02-02 21:16 | P.PN ---
Subjective Progress Note Date: 02/02/21 the patient appeared to be in no distress. He stated that his pain appear to be overall somewhat better. MRI of the brain without contrast, and subsequently with contrast confirmed multiple brain metastasis. He denies any headache or nausea at this time. Objective - Vital Signs Vital signs: Vital Signs Temp 98.2 F 02/02/21 20:53 Pulse 65 02/02/21 20:53 Resp 16 02/02/21 20:53 BP 106/62 02/02/21 20:53 Pulse Ox 97 02/02/21 20:53 Intake & Output 02/02/21 02/02/21 02/03/21 06:59 18:59 06:59 Intake Total 200 Balance 200 Intake: Oral 200 Other: Voiding Method Toilet # Voids 2 1 - Constitutional General appearance: Present: no acute distress - EENT Eyes: Present: EOMI ENT: Present: hearing grossly normal, normal oropharynx - Respiratory Respiratory: bilateral: diminished - Cardiovascular Rhythm: regular Heart sounds: normal: S1, S2 - Gastrointestinal General gastrointestinal: Present: normal bowel sounds, soft - Integumentary Integumentary: Present: normal - Neurologic Neurologic: Present: CNII-XII intact - Musculoskeletal Musculoskeletal: Present: generalized weakness, strength equal bilaterally - Psychiatric Psychiatric Comment(s): comprehension and the colon appear to be definitely somewhat slow Psychiatric: Present: A&O x's 3 - Labs CBC & Chem 7: 02/01/21 04:50 02/02/21 19:32 Labs: Abnormal Lab Results - Last 24 Hours (Table) 02/02/21 02/02/21 02/02/21 Range/Units 07:28 12:13 17:49 Sodium (137-145) mmol/L Chloride (98-107) mmol/L Glucose (74-99) mg/dL POC Glucose (mg/dL) 117 H 222 H 185 H (75-99) mg/dL Albumin (3.5-5.0) g/dL 02/02/21 Range/Units 19:32 Sodium 133 L (137-145) mmol/L Chloride 97 L (98-107) mmol/L Glucose 180 H (74-99) mg/dL POC Glucose (mg/dL) (75-99) mg/dL Albumin 3.3 L (3.5-5.0) g/dL Assessment and Plan (1) Brain metastases Narrative/Plan: the patient was confirmed, unfortunately, to have multiple brain metastasis on MRI without contrast, and subsequently on the contrast study also. This did not show any evidence of significant midline shift hemorrhage. The patient does have somewhat slowed comprehension and recall, but seems to be otherwise asymptomatic. - Results and implications were discussed in detail with him. He has been started on IV steroids. Radiation oncology has been consulted. - I also discussed with him that the presence of multiple brain metastasis furt her supports that his current presentation is due to a malignancy different than his history of prostate cancer, most likely a lung primary. Current Visit: Yes Status: Acute Code(s): C79.31 - SECONDARY MALIGNANT NEOPLASM OF BRAIN SNOMED Code(s): 43407055 (2) Lung mass Narrative/Plan: but, at this time differential is most likely an aggressive primary lung malignancy, with metastasis to mediastinal lymph nodes, brain, adrenal gland and abdominal lymph nodes. Await biopsy for tissue diagnosis. Based on the clinical presentation, and PSA less than 0.1 prostate cancer current essentially ruled out. Bone scan has also been ordered and is pending Current Visit: Yes Status: Acute Code(s): R91.8 - OTHER NONSPECIFIC ABNORMAL FINDING OF LUNG FIELD SNOMED Code(s): 473322056
[2021-02-02 21:36] LABS: Glucose,Whole Blood 165 mg/dL (75-99)
[2021-02-03] MEDS: DEXAMETHASONE SOD PHOSPHATE 4 MG/ML 1 ML VIAL IV SCH ×4 (00:06→17:54)
[2021-02-03 06:18] LABS: Basophils % (A) 0 %; Eosinophils % (A) 0 %; HGB 13.2 gm/dL (13.0-17.5); Lymphocytes # (A) 0.9 k/uL (1.0-4.8); Lymphocytes % (A) 7 %; MCH 30.1 pg (25.0-35.0); MCHC 34.6 g/dL (31.0-37.0); MCV 86.8 fL (80.0-100.0); Mean Platelet Volume 6.9; Monocytes # (A) 0.5 k/uL (0-1.0); Monocytes % (A) 4 %; Neutrophils # (A) 10.9 k/uL (1.3-7.7); Neutrophils % (A) 88 %; Platelet Count 399 k/uL (150-450); RBC 4.38 m/uL (4.30-5.90); RDW 13.5 % (11.5-15.5); WBC 12.3 k/uL (3.8-10.6)
[2021-02-03 06:47] LABS: Glucose,Whole Blood 142 mg/dL (75-99)
[2021-02-03] MEDS: HEPARIN SODIUM,PORCINE/PF 5,000 UNIT/0.5 ML SYRINGE SQ SCH ×2 (08:26→21:24)
[2021-02-03] MEDS: PANTOPRAZOLE 40 MG/10 ML VIAL IV SCH (08:27)
[2021-02-03] MEDS: NICOTINE 14MG/24HR PATCH TRANSDERM SCH (08:27)
[2021-02-03] MEDS: INSULIN ASPART (NovoLOG) 100 UNIT/ML VIAL SQ SCH ×4 (08:27→21:25)
[2021-02-03] MEDS: SENNOSIDES-DOCUSATE SODIUM 1 EACH TAB PO SCH ×2 (08:27→21:24)
[2021-02-03] MEDS: polyethylene glycoL 3350 17 GM POWD.PACK PO SCH (08:28)
[2021-02-03 10:01] LABS: African American GFR (CKD) 109.4 (60.0-200.0); Anion Gap 7.5 mmol/L (4.00-12.00); BUN/Creat Ratio 21.25 Ratio (12.00-20.00); Calcium 8.9 mg/dL (8.7-10.3); Carbon Dioxide 29.5 mmol/L (21.6-31.8); Non-African American GFR(CKD) 94.4 (60.0-200.0); Potassium 4.2 mmol/L (3.5-5.5)
[2021-02-03 11:26] LABS: Glucose,Whole Blood 134 mg/dL (75-99)
[2021-02-03] MEDS: HYDROcodone/APAP 5-325MG 1 EACH TAB PO PRN ×2 (16:43→21:24)
[2021-02-03] MEDS: HYDROmorphone 0.5 MG/0.5 ML SYRINGE IVP PRN (16:49)
[2021-02-03 17:27] LABS: Glucose,Whole Blood 148 mg/dL (75-99)
--- NOTE | 2021-02-03 18:05 | P.PN ---
Subjective Progress Note Date: 02/02/21 Patient was seen by Tele-Neurology. Patient was sleeping when arrived. Patient did wake up, and sat on the side of the bed.. Patient states he is feeling better. Offers no complaints. Denies headache. Mentation has improved. Objective - Vital Signs Vital signs: Vital Signs Temp 97.6 F 02/03/21 13:00 Pulse 64 02/03/21 13:00 Resp 18 02/03/21 13:00 BP 135/63 02/03/21 13:00 Pulse Ox 99 02/03/21 13:00 Intake & Output 02/02/21 02/03/21 02/03/21 18:59 06:59 18:59 Intake Total 240 Balance 240 Intake: Oral 240 Other: Voiding Method Toilet # Voids 1 1 - Exam Patient was sleeping, on waking up, he did become alert and awake. Speech and language functions are normal. Patient knows that it is January 2021 and that he is in [facility]. Visual moore are full, face is symmetric and muscle strength is normal. No ataxia. - Labs CBC & Chem 7: 02/03/21 06:00 02/03/21 06:00 Labs: Abnormal Lab Results - Last 24 Hours (Table) 02/02/21 02/02/21 02/03/21 Range/Units 19:32 21:35 06:00 WBC 12.3 H (3.8-10.6) k/uL Hct 38.0 L (39.0-53.0) % Neutrophils # 10.9 H (1.3-7.7) k/uL Lymphocytes # 0.9 L (1.0-4.8) k/uL Sodium 133 L (137-145) mmol/L Chloride 97 L (98-107) mmol/L BUN/Creatinine Ratio (12.00-20.00) Ratio Glucose 180 H (74-99) mg/dL POC Glucose (mg/dL) 165 H (75-99) mg/dL Albumin 3.3 L (3.5-5.0) g/dL 02/03/21 02/03/21 02/03/21 Range/Units 06:00 06:45 11:13 WBC (3.8-10.6) k/uL Hct (39.0-53.0) % Neutrophils # (1.3-7.7) k/uL Lymphocytes # (1.0-4.8) k/uL Sodium (137-145) mmol/L Chloride (98-107) mmol/L BUN/Creatinine Ratio 21.25 H (12.00-20.00) Ratio Glucose 140 H (74-99) mg/dL POC Glucose (mg/dL) 142 H 134 H (75-99) mg/dL Albumin (3.5-5.0) g/dL 02/03/21 Range/Units 17:25 WBC (3.8-10.6) k/uL Hct (39.0-53.0) % Neutrophils # (1.3-7.7) k/uL Lymphocytes # (1.0-4.8) k/uL Sodium (137-145) mmol/L Chloride (98-107) mmol/L BUN/Creatinine Ratio (12.00-20.00) Ratio Glucose (74-99) mg/dL POC Glucose (mg/dL) 148 H (75-99) mg/dL Albumin (3.5-5.0) g/dL Assessment and Plan Assessment: * Probable metastatic cancer with cerebral metastasis. Lung cancer most likely primary source. * Status post adrenal mass biopsy * Tobacco use * Weight loss Plan: * MRI of the brain with IV contrast revealed multiple x4 ring-enhancing lesions involving supra-and infratentorial region, highly suggestive of metastatic disease. * Discussed with patient about results of contrast enhanced MRI. * Patient has been started on Decadron 4 mg every 6 hours. * No indication for antiepileptic medication, unless patient has clinical seizure, or if has abnormal EEG. We will check EEG. * Further recommendations awaiting from oncology. * Await adrenal mass biopsy results.
[2021-02-03 20:39] LABS: Glucose,Whole Blood 132 mg/dL (75-99)
--- NOTE | 2021-02-03 22:10 | PN ---
PROGRESS NOTE DATE OF SERVICE: 02/03/2021 This 65-year-old gentleman who was admitted with abdominal pain with possibly adrenal metastatic malignancy. Had MRI brain. MRI scan showed multiple lesions. Patient closely monitored. No chest pain, no palpitation, no fever. PHYSICAL EXAMINATION: Alert, attentive. Pulse 58, blood pressure 120/76, respiration 20, temperature 98.2, pulse ox 97% on room air. HEENT: Normal conjunctivae. RESPIRATION: Breath sounds diminished at the bases, a few scattered rhonchi. ABDOMEN: Soft, nontender. LEGS: No swelling. No edema. NERVOUS SYSTEM: Mild diffuse weakness. LAB STUDIES: WBC 12.3, other labs are noted. ASSESSMENT: 1. Abdominal pain with possibly metastatic malignancy, primary unknown. 2. Adrenal mass status post adrenal biopsy. 3. Multiple supratentorial infratentorial enhancing lesions. MRA showing possibly brain METS. 4. Right lung lesion, possibly primary malignancy, rule out METS. 5. 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 6. History of prostate cancer surgery. 7. Hyponatremia. 8. History of nicotine dependence. 9. FULL CODE. RECOMMENDATIONS AND DISCUSSION: I recommend to continue current medications, management and treatment. Otherwise at this time I recommend monitor the blood sugars closely and continue the rest of the medications. Monitor blood pressure closely and await biopsy reports and Dr. Matta's input appreciated. Neurology is also seeing the patient at this time. MMCHRISTIANNEL / SANDIEN: [id number] /
[2021-02-04] MEDS: DEXAMETHASONE SOD PHOSPHATE 4 MG/ML 1 ML VIAL IV SCH ×4 (05:24→15:58)
[2021-02-04 06:53] LABS: Glucose,Whole Blood 112 mg/dL (75-99)
[2021-02-04] MEDS: INSULIN ASPART (NovoLOG) 100 UNIT/ML VIAL SQ SCH ×4 (07:17→20:57)
[2021-02-04] MEDS: SENNOSIDES-DOCUSATE SODIUM 1 EACH TAB PO SCH ×2 (08:48→20:58)
[2021-02-04] MEDS: polyethylene glycoL 3350 17 GM POWD.PACK PO SCH (08:48)
[2021-02-04] MEDS: HEPARIN SODIUM,PORCINE/PF 5,000 UNIT/0.5 ML SYRINGE SQ SCH ×2 (08:48→20:58)
[2021-02-04] MEDS: NICOTINE 14MG/24HR PATCH TRANSDERM SCH (08:48)
[2021-02-04] MEDS: PANTOPRAZOLE 40 MG/10 ML VIAL IV SCH (08:48)
[2021-02-04 11:22] LABS: Glucose,Whole Blood 120 mg/dL (75-99)
--- NOTE | 2021-02-04 12:54 | P.PN ---
Subjective Progress Note Date: 02/04/21 Principal diagnosis: Metastatic Cancer Discussed in detail CT and MRI result and continue to await Biopsy of adrenal gland to result for further recs. Pain is still difficult to control, increased fentanyl today and short acting norco dose Objective - Vital Signs Vital signs: Vital Signs Temp 97.7 F 02/04/21 05:00 Pulse 51 L 02/04/21 05:00 Resp 20 02/04/21 05:00 BP 108/58 02/04/21 05:00 Pulse Ox 98 02/04/21 05:00 Intake & Output 02/03/21 02/04/21 02/04/21 18:59 06:59 18:59 Intake Total 540 200 Output Total 500 Balance 540 -300 Intake: Oral 540 200 Output: Urine 500 Other: Voiding Method Toilet # Voids 1 2 # Bowel Movements 1 1 - Exam - Constitutional General appearance: cooperative, no acute distress - EENT Eyes: EOMI ENT: hard of hearing, NA/AT - Respiratory Respiratory: bilateral: diminished - Gastrointestinal General gastrointestinal: soft, tenderness - Integumentary Integumentary: pale - Neurologic Neurologic: CNII-XII intact - Musculoskeletal Musculoskeletal: generalized weakness - Psychiatric Psychiatric: A&O x's - Labs CBC & Chem 7: 02/03/21 06:00 02/03/21 06:00 Labs: Abnormal Lab Results - Last 24 Hours (Table) 02/03/21 02/03/21 02/03/21 Range/Units 11:13 17:25 20:34 POC Glucose (mg/dL) 134 H 148 H 132 H (75-99) mg/dL 02/04/21 Range/Units 06:51 POC Glucose (mg/dL) 112 H (75-99) mg/dL Assessment and Plan (1) Constipation Current Visit: Yes Status: Acute Code(s): K59.00 - CONSTIPATION, UNSPECIFIED SNOMED Code(s): 72848133 (2) Left adrenal mass Current Visit: Yes Status: Acute Code(s): E27.8 - OTHER SPECIFIED DISORDERS OF ADRENAL GLAND SNOMED Code(s): 904907592 (3) Prostate CA Current Visit: Yes Status: Acute Code(s): C61 - MALIGNANT NEOPLASM OF PROSTATE SNOMED Code(s): 369105595 (4) Abdominal pain Current Visit: Yes Status: Acute Code(s): R10.9 - UNSPECIFIED ABDOMINAL PAIN SNOMED Code(s): 34524373 (5) Lung mass Current Visit: Yes Status: Acute Code(s): R91.8 - OTHER NONSPECIFIC ABNORMAL FINDING OF LUNG FIELD SNOMED Code(s): 985329671 Plan: Pallaiitive Pain Controll and scheduled bowel regimen for narcotic induced constipation Biopsy of left adrenal mass -Await Path MRI - Suspicious fro metastatic disease IV DIlaudid for fast acting at this time and Fentanyl long acting patch increased today CT scan of chest was reviewed: Right suprahilar 5x5cm mass revealed as well as thoracic adenopathy. Interventional radiology has been consulted, he has been made NPO after midnight and a biopsy of left adrenal mass and lung mass (primary importance for tissue biopsy) has been requested for Thursday. With history of prostate cancer obtaining biopsy of adrenal met would be beneficial to confirm metastatic malignancy source if a diagnosis of two primary cancers found. An MRI of the brain has also been ordered. Status POst biopsy of Adrenal Mass - Path is pending Discussed concern for metastatic disease to brain, continue dexamethasone, PPI and await recs from radiation oncology Increase pain management and continue daily bowel regimen
--- NOTE | 2021-02-04 15:26 | P.PN ---
Subjective Progress Note Date: 02/04/21 I'm seeing the patient for the first time for neurological management. Please refer to Dr. Jackson from further neurological history and assessment and plan. Objective - Vital Signs Vital signs: Vital Signs Temp 98 F 02/04/21 11:51 Pulse 56 L 02/04/21 11:51 Resp 16 02/04/21 11:51 BP 115/66 02/04/21 11:51 Pulse Ox 97 02/04/21 11:51 Intake & Output 02/03/21 02/04/21 02/04/21 18:59 06:59 18:59 Intake Total 540 200 Output Total 500 Balance 540 -300 Intake: Oral 540 200 Output: Urine 500 Other: Voiding Method Toilet # Voids 1 2 # Bowel Movements 1 1 - Exam Patient is an elderly male, very pleasant, in no acute distress. Patient is alert awake oriented to time, place and person. Patient has some word finding problem. He can name and repeat very well. Speech and language functions are normal. Attention, concentration and fund of knowledge is adequate. On cranial examination, pupils are round and reacting to light, visual moore are full on confrontation, extraocular muscles are intact with no nystagmus. Face is symmetric, tongue protrudes to the midline. Palatal elevation and sensation normal, hearing and shoulder shrug normal, facial sensation normal. Shoulder shrug normal. On muscle strength testing, there is right pronator drift and the strength is normal in arms and legs distally and proximally, except right shoulder which is weak from ? Shoulder issue. Cerebellar function showed no ataxia for alqikw-[id number] testing. No dysdiadochokinesia. Tone and bulk of muscles normal. Sensory to touch is equal with no neglect. Deep tendon reflexes are 2 in the upper limbs, 2 in the lower limbs. plantars downgoing. - Labs CBC & Chem 7: 02/03/21 06:00 02/03/21 06:00 Labs: Abnormal Lab Results - Last 24 Hours (Table) 02/03/21 02/03/21 02/04/21 Range/Units 17:25 20:34 06:51 POC Glucose (mg/dL) 148 H 132 H 112 H (75-99) mg/dL 02/04/21 Range/Units 11:21 POC Glucose (mg/dL) 120 H (75-99) mg/dL Assessment and Plan Assessment: * Brain mets. Primary possibly lung cancer. * Status post adrenal mass biopsy * Tobacco use * Weight loss Plan: * Patient is on Decadron 4 mg every 6 hours. * Preliminary routine EEG on 02/04/2021: Background slowing suggestive of mild encephalopathy. There are no focal slowing, epileptiform discharge or seizure in the EEG. * I updated the patient about his EEG not showing any seizures or epileptiform discharges and I notified him that there could be a benefit of antiepileptic drug in preventing seizure down the line versus holding off for now since he didn't have any seizures. I notified him that the from my side be more beneficial to prevent future seizure especially with the brain metastases but he opted out of being started on the antiepileptic drug for now and he stated that he'll follow up as an outpatient. * Further recommendations awaiting from oncology. * Await adrenal mass biopsy results. * Recommend for the patient to follow-up with a neurologist and neurosurgeon as an outpatient within 1-2 weeks. There is no further workup needed at this time. Please notify neurology if any further concerns. Abisai Dunbar MD Neuro-Hospitalist Time with Patient: Less than 30
[2021-02-04] MEDS: NYSTATIN 100,000 UNIT/ML SUSP 500,000 UNIT/5 ML CUP PO SCH ×3 (15:57→20:58)
--- NOTE | 2021-02-04 16:02 | NM ---
EXAMINATION TYPE: NM bone scan whole body DATE OF EXAM: 02/04/2021 COMPARISON: CT chest 01/31/2021 HISTORY: Metastatic disease, pain Delayed whole-body scanning was performed following the injection of 23.6 mCi Tc 99m MDP. Images acq uired 4.5 hours post injection. FINDINGS: There is a lytic lesion involving the ninth thoracic vertebral body, lytic abnormality on CT shows a focal soft tissue extends to posteriorly into the thoracic canal, second digit lesion is present more anteriorly within the vertebral body. Bone scan shows associated increased uptake at this level. Soft tissue uptake is within normal limits . No additional metastatic foci are evident. IMPRESSION: Metastatic lesion to the T9 vertebral body. There is a soft tissue component extending into the thora cic canal.
--- NOTE | 2021-02-04 16:58 | EEG ---
ELECTROENCEPHALOGRAM REPORT DATE OF SERVICE: 02/04/2021. This is a 65-year-old gentleman with history of metastatic brain cancer. This video EEG is obtained to evaluate for seizure and epileptiform activity. RELEVANT MEDICATION: The patient is not on any antiepileptic drugs. EEG TYPE: Wakefulness is obtained. During wakefulness, there is a posterior dominant rhythm of low to moderate voltage, well modulated, of 7-8 hertz activity. There is no sleep architecture seen. There is no focal slowing. Interictal and ictal are none. ACTIVATION PROCEDURES: Photic stimulation did not evoke a posterior driving response. There is no abnormality during photic stimulation. Hyperventilation is not performed. CLINICAL INTERPRETATION: This is an abnormal routine EEG. The background slowing is suggestive of mild encephalopathy. There are no focal slowing, epileptiform discharge or seizure on the EEG. Clinical correlation is recommended. RO / CASSIE: [id number] / MTDD
[2021-02-04 17:01] LABS: Glucose,Whole Blood 100 mg/dL (75-99)
[2021-02-04 20:23] LABS: Glucose,Whole Blood 115 mg/dL (75-99)
[2021-02-04] MEDS: HYDROcodone/APAP 5-325MG 1 EACH TAB PO PRN (20:58)
[2021-02-05] MEDS: DEXAMETHASONE SOD PHOSPHATE 4 MG/ML 1 ML VIAL IV SCH ×3 (00:05→12:32)
--- NOTE | 2021-02-05 00:40 | P.PN ---
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 Oncology along with neurology and radiation oncology following. Patient is scheduled for nuclear bone scan which is pending at this time. Will await report. Patient did have an MRI of the brain which showed multiple lesions. Neurology evaluated the patient and patient underwent eeg showing abnormal with slowing in the background which could indicate mild encephalopathy. Patient denies any chest pain or shortness of breath. Awaiting adrenal biopsy results. Review of systems: Constitutional: reports of fatigue, no reports of fever, or chills Cardiovascular: No reports of chest pain or palpitations Respiratory: No reports of shortness of breath or cough GI: No reports of nausea, vomiting, or diarrhea : No reports of dysuria or retention Neurovascular: reports of generalized weakness All medications have been reviewed Objective - Vital Signs Vital signs: Vital Signs Temp 97.7 F 02/04/21 05:00 Pulse 51 L 02/04/21 05:00 Resp 20 02/04/21 05:00 BP 108/58 02/04/21 05:00 Pulse Ox 98 02/04/21 05:00 Intake & Output 02/03/21 02/04/21 02/04/21 18:59 06:59 18:59 Intake Total 540 200 Output Total 500 Balance 540 -300 Intake: Oral 540 200 Output: Urine 500 Other: Voiding Method Toilet # Voids 1 2 # Bowel Movements 1 1 - Exam Gen: This is a 65-year-old male sitting up at the side of the bed awake, alert and oriented 3, thin built. Temp is 97.7F, pulse is 51, respirations are 20, blood pressure is 108/58, oxygen saturation is 98% on room air HEENT: Head is atraumatic, normocephalic. Pupils equal, round. Sclerae is anicteric. NECK: Supple. No JVD. No lymphadenopathy. No thyromegaly. LUNGS: diminished breath sounds bilaterally with some scattered rhonchi noted. No intercostal retractions. HEART: S1, S2 muffled ABDOMEN: Soft. Bowel sounds are present. No masses. No tenderness. EXTREMITIES: No pedal edema. No calf tenderness. NEUROLOGICAL: Patient is awake, alert and oriented x3. Cranial nerves 2 through 12 are grossly intact. diffuse weakness - Labs CBC & Chem 7: 02/03/21 06:00 02/03/21 06:00 Labs: Abnormal Lab Results - Last 24 Hours (Table) 02/03/21 02/03/21 02/03/21 Range/Units 11:13 17:25 20:34 POC Glucose (mg/dL) 134 H 148 H 132 H (75-99) mg/dL 02/04/21 02/04/21 Range/Units 06:51 11:21 POC Glucose (mg/dL) 112 H 120 H (75-99) mg/dL Assessment and Plan Assessment: Abdominal pain with possible metastatic malignancy, primary unknown Adrenal mass status post adrenal biopsy Multiple supratentorial and infratentorial enhancing lesions, MRA showing possibly brain metastasis Right lung lesion, possibly primary malignancy, rule out metastases 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 Patient is scheduled to undergo a nuclear bone scan which is pending at this time. Oncology and neurology following and consult was placed to radiation oncology. Biopsy pending and awaiting results for treatment plans moving forward. Will repeat am labs and continue to monitor closely. Guarded prognosis.
[2021-02-05 07:11] LABS: Glucose,Whole Blood 100 mg/dL (75-99)
[2021-02-05] MEDS: INSULIN ASPART (NovoLOG) 100 UNIT/ML VIAL SQ SCH ×4 (07:30→20:40)
[2021-02-05 07:42] LABS: Basophils % (A) 0 %; Eosinophils # (A) 0.1 k/uL (0-0.7); Eosinophils % (A) 1 %; HCT 39.6 % (39.0-53.0); HGB 13.2 gm/dL (13.0-17.5); Lymphocytes # (A) 1.3 k/uL (1.0-4.8); Lymphocytes % (A) 13 %; MCH 29.8 pg (25.0-35.0); MCHC 33.2 g/dL (31.0-37.0); MCV 89.7 fL (80.0-100.0); Monocytes # (A) 0.7 k/uL (0-1.0); Monocytes % (A) 7 %; Neutrophils % (A) 79 %; Platelet Count 378 k/uL (150-450); RBC 4.42 m/uL (4.30-5.90); RDW 13.6 % (11.5-15.5); WBC 10.1 k/uL (3.8-10.6)
[2021-02-05 08:02] LABS: African American GFR (CKD) >90 (>60 ml/min/1.73 sqM); Anion Gap 6 mmol/L; Blood Urea Nitrogen 19 mg/dL (9-20); Carbon Dioxide 30 mmol/L (22-30); Chloride 96 mmol/L (98-107); Glucose 99 mg/dL (74-99); Non-African American GFR(CKD) >90 (>60 ml/min/1.73 sqM); Potassium 4.6 mmol/L (3.5-5.1); Sodium 132 mmol/L (137-145)
[2021-02-05] MEDS: NICOTINE 14MG/24HR PATCH TRANSDERM SCH (08:20)
[2021-02-05] MEDS: NYSTATIN 100,000 UNIT/ML SUSP 500,000 UNIT/5 ML CUP PO SCH ×4 (08:21→20:11)
[2021-02-05] MEDS: PANTOPRAZOLE 40 MG/10 ML VIAL IV SCH ×2 (08:21→20:47)
[2021-02-05] MEDS: HEPARIN SODIUM,PORCINE/PF 5,000 UNIT/0.5 ML SYRINGE SQ SCH ×2 (08:21→20:47)
[2021-02-05] MEDS: SENNOSIDES-DOCUSATE SODIUM 1 EACH TAB PO SCH ×2 (08:22→20:47)
[2021-02-05] MEDS: polyethylene glycoL 3350 17 GM POWD.PACK PO SCH (08:22)
[2021-02-05 12:03] LABS: Glucose,Whole Blood 111 mg/dL (75-99)
--- NOTE | 2021-02-05 13:01 | P.CONS ---
History of Present Illness - Reason for Consult Consult date: 02/04/21 brain metastases Requesting physician: Kenny Matta - Chief Complaint abdominal pain - History of Present Illness The patient is a 65-year-old male with a history of prostate cancer treated with prostatectomy several years ago. He now presents with what appears to be metastatic non-small cell lung cancer likely originating in the right upper lung with metastatic disease involving the brain, bones and abdominal adenopathy. He presents with right upper abdominal pain. The patient's oncologic history began over the past few months. He states that in general he had not been feeling well. He notes decreased appetite, abdominal pain and 20 pound weight loss. The patient was reportedly seen by Dr. Cohen as an outpatient, and he underwent a CT scan of the abdomen and pelvis at [facility] which revealed the adrenal lesion on the left and abdominal adenopathy. The patient was subsequently hospitalized at [facility] on January 31 complaining of abdominal pain and dehydration. He underwent a CT scan of the chest which revealed a 5 x 5 cm right suprahilar mass with ipsilateral hilar and mediastinal adenopathy. There was a 2 cm left adrenal gland lesion noted. The patient underwent CT-guided biopsy of the left adrenal gland. Although the final results from this pathology has not returned, preliminary read shows non- small cell lung cancer. We are awaiting immunostaining for final typing. The patient underwent an MRI of the brain on February 02 which showed a 1 x 1.4 cm right cerebellar mass, a 1.3 cm left parietal mass, a 2.1 x 2.5 cm left frontal mass, and a couple of small subcentimeter lesions. The majority of the vasogenic edema with surrounding the left frontal mass. The patient at this time continues to her report right upper quadrant abdominal pain. He states he has to lay on his left side or else this is painful. He states this pain has been ongoing for the last several weeks. There appear to be no exacerbating factors, but he does note getting some benefit from his current pain medication. He has no difficulty with headaches, nausea or weakness/numbness/tingling of the extremities. Review of Systems Constitutional: Reports anorexia, Reports lethargy, Denies chills, Denies fever Eyes: denies decreased vision Ears: deny: decreased hearing Ears, nose, mouth and throat: Denies dysphagia, Denies headache Cardiovascular: Reports dyspnea on exertion, Denies chest pain Respiratory: Denies cough, Denies hemoptysis, Denies home oxygen Gastrointestinal: Reports abdominal pain, Reports loss of appetite, Denies belching, Denies BRBPR Genitourinary: Denies flank pain Musculoskeletal: Denies frequent falls Integumentary: Denies rash Neurological: Reports confusion, Denies ataxia, Denies double vision, Denies headaches, Denies numbness, Denies paresthesias, Denies seizures Psychiatric: Reports confusion, Reports memory loss Past Medical History Past Medical History: Cancer, Prostate Disorder Additional Past Medical History / Comment(s): prostate cancer no chemo or radiation 2018, History of Any Multi-Drug Resistant Organisms: None Reported Past Surgical History: Prostate Surgery Additional Past Surgical History / Comment(s): prostatectomy Past Anesthesia/Blood Transfusion Reactions: No Reported Reaction Past Psychological History: No Psychological Hx Reported Smoking Status: Current every day smoker Past Alcohol Use History: None Reported Past Drug Use History: None Reported - Past Family History Father Family Medical History: Cancer Additional Family Medical History / Comment(s): prostate cancer Brother(s) Family Medical History: Cancer Additional Family Medical History / Comment(s): prostate cancer Medications and Allergies Home Medications Medication Instructions Recorded Confirmed Type traMADol HCl [Ultram] 50 mg PO BID@1500,2100 01/31/21 01/31/21 History traMADol HCl [Ultram] 100 mg PO DAILY 01/31/21 01/31/21 History Allergies Allergy/AdvReac Type Severity Reaction Status Date / Time No Known Allergies Allergy Verified 01/31/21 13:11 Physical Exam Vitals: Vital Signs Temp Pulse Resp BP Pulse Ox 02/05/21 12:08 97.5 F L 58 L 17 105/48 99 02/05/21 04:45 98 F 64 20 93/55 97 02/04/21 19:05 98.7 F 73 20 100/62 98 Intake and Output 02/04/21 02/05/21 02/05/21 22:59 06:59 14:59 Intake Total 600 100 Balance 600 100 Intake: Oral 600 100 Other: Voiding Method Toilet # Voids 1 Weight 58.06 kg - Constitutional General appearance: no acute distress - EENT Eyes: EOMI, PERRLA ENT: hearing grossly normal - Neck Neck: no lymphadenopathy - Respiratory Respiratory: right: diminished, left: CTA - Cardiovascular Rhythm: regular - Gastrointestinal General gastrointestinal: no distended, no hepatomegaly, soft, tenderness - Integumentary Integumentary: no calor, no cellulitis - Neurologic Neurologic: CNII-XII intact - Musculoskeletal Musculoskeletal: gait normal, strength equal bilaterally - Psychiatric Psychiatric: A&O x's 3, appropriate affect Results CBC & Chem 7: 02/05/21 07:22 02/05/21 07:22 Labs: Abnormal Lab Results - Last 24 Hours (Table) 02/04/21 02/04/21 02/05/21 Range/Units 17:00 20:10 07:04 Neutrophils # (1.3-7.7) k/uL Sodium (137-145) mmol/L Chloride (98-107) mmol/L POC Glucose (mg/dL) 100 H 115 H 100 H (75-99) mg/dL 02/05/21 02/05/21 02/05/21 Range/Units 07:22 07:22 11:59 Neutrophils # 8.0 H (1.3-7.7) k/uL Sodium 132 L (137-145) mmol/L Chloride 96 L (98-107) mmol/L POC Glucose (mg/dL) 111 H (75-99) mg/dL CT scan - chest: report reviewed, image reviewed MRI - head: report reviewed, image reviewed Assessment and Plan Assessment: The patient is a 65-year-old male with a history of prostate cancer treated with prostatectomy several years ago. He now presents with what appears to be metastatic non-small cell lung cancer likely originating in the right upper lung with metastatic disease involving the brain, bones and abdominal adenopathy. He presents with right upper abdominal pain. Plan: 1. Brain metastases: As detailed above, preliminary pathology report shows a non-small cell lung cancer. The patient has approximately 6 lesions based on his recent MRI. I felt that the patient would be a candidate for stereotactic therapy, but at the time of our consultation he seems to have a bit of confusion. He stated he was going for a second biopsy (this is not ordered) and seemed to be unsure what exams he had finished earlier. I did speak with the patient's son Luis, and explained this treatment recommendation. He plans to come to the hospital tomorrow. 2. Non-small cell lung cancer: Final pathology pending, but this is based on preliminary report. I discussed with the patient's son that this represents metastatic disease (adrenal biopsy). I am uncertain as to why the patient has right upper quadrant abdominal pain. We will request the outside report from [place] regarding the CT scan of his abdomen and pelvis. 3. Bone metastases: The patient has relatively large lesions involving T9 and T4. Both these lesions are eccentric to the right and appear to invade the spinal canal. It is surprising the patient does not complain of more pain related to these lesions. He may be getting some benefit from dexamethasone. Depending on what the patient and his family decide (if they pursue active therapy), he will certainly need palliative radiation to each of these sites to prevent spinal cord compression. Time: I spent 35 minutes with this patient, of which greater than 50% of that time was spent counseling, coordinating care. Time with Patient: Greater than 30
--- NOTE | 2021-02-05 13:32 | P.PN ---
Subjective Progress Note Date: 02/05/21 Principal diagnosis: Metastatic Cancer Patient has been unable to retain information well, he does not seem confused when interacting although when asked questions related to hospitalization, family, etc. He has not answered consistently. He did agree to me speaking with Son Joel, who has also been POA in past when patient was unable to make decisions. However this has since and highly recommended we assist patient with appointing an advocate with the help from social insurance specialist/case management - consult placed. Objective - Vital Signs Vital signs: Vital Signs Temp 97.5 F L 02/05/21 12:08 Pulse 58 L 02/05/21 12:08 Resp 17 02/05/21 12:08 BP 105/48 02/05/21 12:08 Pulse Ox 99 02/05/21 12:08 Intake & Output 02/04/21 02/05/21 02/05/21 18:59 06:59 18:59 Intake Total 540 160 Balance 540 160 Weight 58.06 kg Intake: Oral 540 160 Other: Voiding Method Toilet # Voids 1 - Exam - Constitutional General appearance: cooperative, no acute distress - EENT Eyes: EOMI ENT: hard of hearing, NA/AT - Respiratory Respiratory: bilateral: diminished - Gastrointestinal General gastrointestinal: soft, tenderness - Integumentary Integumentary: pale - Neurologic Neurologic: CNII-XII intact - Musculoskeletal Musculoskeletal: generalized weakness - Psychiatric Psychiatric: A&O x's - Labs CBC & Chem 7: 02/05/21 07:22 02/05/21 07:22 Labs: Abnormal Lab Results - Last 24 Hours (Table) 02/04/21 02/04/21 02/05/21 Range/Units 17:00 20:10 07:04 Neutrophils # (1.3-7.7) k/uL Sodium (137-145) mmol/L Chloride (98-107) mmol/L POC Glucose (mg/dL) 100 H 115 H 100 H (75-99) mg/dL 02/05/21 02/05/21 02/05/21 Range/Units 07:22 07:22 11:59 Neutrophils # 8.0 H (1.3-7.7) k/uL Sodium 132 L (137-145) mmol/L Chloride 96 L (98-107) mmol/L POC Glucose (mg/dL) 111 H (75-99) mg/dL Assessment and Plan (1) Constipation Current Visit: Yes Status: Acute Code(s): K59.00 - CONSTIPATION, UNSPECIFIED SNOMED Code(s): 76122728 (2) Left adrenal mass Current Visit: Yes Status: Acute Code(s): E27.8 - OTHER SPECIFIED DISORDERS OF ADRENAL GLAND SNOMED Code(s): 758409834 (3) Prostate CA Current Visit: Yes Status: Acute Code(s): C61 - MALIGNANT NEOPLASM OF PROSTATE SNOMED Code(s): 499656702 (4) Abdominal pain Current Visit: Yes Status: Acute Code(s): R10.9 - UNSPECIFIED ABDOMINAL PAIN SNOMED Code(s): 23543160 (5) Lung mass Current Visit: Yes Status: Acute Code(s): R91.8 - OTHER NONSPECIFIC ABNORMAL FINDING OF LUNG FIELD SNOMED Code(s): 748910175 Plan: Pallaiitive Pain Controll and scheduled bowel regimen for narcotic induced constipation Biopsy of left adrenal mass -Await Path MRI - Suspicious fro metastatic disease IV DIlaudid for fast acting at this time and Fentanyl long acting patch increased today CT scan of chest was reviewed: Right suprahilar 5x5cm mass revealed as well as thoracic adenopathy. Interventional radiology has been consulted, he has been made NPO after midnight and a biopsy of left adrenal mass and lung mass (primary importance for tissue biopsy) has been requested for Thursday. With history of prostate cancer obtaining biopsy of adrenal met would be beneficial to confirm metastatic malignancy source if a diagnosis of two primary cancers found. An MRI of the brain has also been ordered. Bone scan: Thoracic lesion with concern of invasion to canal - MRI pending With increased confusion and retaining information (patient stated he was in hospital for heart issues) we have increased dexamethasone 6mg IV q6 Status Post biopsy of Adrenal Mass 7.16.21- Path is pending although preliminary appears to be non-small cell (unknown subtype) Discussed concern for metastatic disease to brain, continue dexamethasone, PPI and await recs from radiation oncology Long discussion with patient's son, consult for social insurance specialist to follow-up and assist with DPOA paperwork. Patient is aware this is likely a treated situation, not curable. Given the metastatic disease to brain and spine.
[2021-02-05] MEDS: DEXAMETHASONE SOD PHOSPHATE 10 MG/ML 1 ML VIAL IV SCH ×3 (14:21→23:03)
--- NOTE | 2021-02-05 16:56 | P.PN ---
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 Oncology along with neurology and radiation oncology following. Patient is scheduled for nuclear bone scan which is pending at this time. Will await report. Patient did have an MRI of the brain which showed multiple lesions. Neurology evaluated the patient and patient underwent eeg showing abnormal with slowing in the background which could indicate mild encephalopathy. Patient denies any chest pain or shortness of breath. Awaiting adrenal biopsy results. 02/05/2021 Patient is seen in follow up and continues to be confused at times stating that he is not being told what the plan is about his care and he is stating that he would like to go home. Patient is currently maintained on high dose steroids and will monitor blood sugars because of this. Oncology along with neurology and radiation oncology following. Patient oral intake is fair and denies any nausea or vomiting, just having some mild constipation but denies any abdominal discomfort. Oncology following and working with son Luis about obtaining power of trademark attorney as patient continues to be confused not able to make sound decisions. Social work consult placed. Case management made aware of the situation. Radiation oncology following and discussing possible palliative treatment to the large lesions noted on T9 and T4 that was noted on the bone scan. Sodium slightly low at 132. Pathology report of the adrenal biopsy pending still at this time. Review of systems: Constitutional: reports of fatigue, no reports of fever, or chills Cardiovascular: No reports of chest pain or palpitations Respiratory: No reports of shortness of breath or cough GI: No reports of nausea, vomiting, or diarrhea : No reports of dysuria or retention Neurovascular: reports of generalized weakness All medications have been reviewed Objective - Vital Signs Vital signs: Vital Signs Temp 98 F 02/05/21 04:45 Pulse 64 02/05/21 04:45 Resp 20 02/05/21 04:45 BP 93/55 02/05/21 04:45 Pulse Ox 97 02/05/21 04:45 Intake & Output 02/04/21 02/05/21 02/05/21 18:59 06:59 18:59 Intake Total 540 160 Balance 540 160 Weight 58.06 kg Intake: Oral 540 160 Other: Voiding Method Toilet # Voids 1 - Exam Gen: This is a 65-year-old male sitting up at the side of the bed awake, alert and oriented 3, thin built. HEENT: Head is atraumatic, normocephalic. Pupils equal, round. Sclerae is anicteric. NECK: Supple. No JVD. No lymphadenopathy. No thyromegaly. LUNGS: diminished breath sounds bilaterally with some scattered rhonchi noted. No intercostal retractions. HEART: S1, S2 muffled ABDOMEN: Soft. Bowel sounds are present. No masses. No tenderness. EXTREMITIES: No pedal edema. No calf tenderness. NEUROLOGICAL: Patient is awake, alert and oriented x3. Cranial nerves 2 through 12 are grossly intact. diffuse weakness - Labs CBC & Chem 7: 02/05/21 07:22 02/05/21 07:22 Labs: Abnormal Lab Results - Last 24 Hours (Table) 02/04/21 02/04/21 02/04/21 Range/Units 11:21 17:00 20:10 Neutrophils # (1.3-7.7) k/uL Sodium (137-145) mmol/L Chloride (98-107) mmol/L POC Glucose (mg/dL) 120 H 100 H 115 H (75-99) mg/dL 02/05/21 02/05/21 02/05/21 Range/Units 07:04 07:22 07:22 Neutrophils # 8.0 H (1.3-7.7) k/uL Sodium 132 L (137-145) mmol/L Chloride 96 L (98-107) mmol/L POC Glucose (mg/dL) 100 H (75-99) mg/dL Assessment and Plan Assessment: Abdominal pain with possible metastatic malignancy, primary unknown Constipation Adrenal mass status post adrenal biopsy Multiple supratentorial and infratentorial enhancing lesions, MRA showing brain metastasis Right lung lesion, possibly primary malignancy, rule out metastases 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 Patient underwent nuclear bone scan showing some large lesions at the T9 and T4 with possible spinal cord invasion. Oncology and neurology and radiation oncology following. Biopsy pending and awaiting results for treatment plans moving forward. Will repeat am labs and continue to monitor closely. Patient continues to be confused and family feels he is unable to make sound decisions and social work consult placed for possible assistance with power of trademark attorney paperwork for margy Smith. Guarded prognosis. Possible discharge in 24- 48 hours.
[2021-02-05 17:03] LABS: Glucose,Whole Blood 121 mg/dL (75-99)
[2021-02-05 20:29] LABS: Glucose,Whole Blood 169 mg/dL (75-99)
[2021-02-05] MEDS: HYDROcodone/APAP 5-325MG 1 EACH TAB PO PRN (20:46)
[2021-02-06] MEDS: DEXAMETHASONE SOD PHOSPHATE 10 MG/ML 1 ML VIAL IV SCH ×4 (04:58→23:52)
[2021-02-06 07:06] LABS: Glucose,Whole Blood 113 mg/dL (75-99)
[2021-02-06] MEDS: INSULIN ASPART (NovoLOG) 100 UNIT/ML VIAL SQ SCH ×4 (07:16→21:18)
[2021-02-06] MEDS: NICOTINE 14MG/24HR PATCH TRANSDERM SCH (09:16)
[2021-02-06] MEDS: HEPARIN SODIUM,PORCINE/PF 5,000 UNIT/0.5 ML SYRINGE SQ SCH ×2 (09:17→21:19)
[2021-02-06] MEDS: NYSTATIN 100,000 UNIT/ML SUSP 500,000 UNIT/5 ML CUP PO SCH ×4 (09:17→21:17)
[2021-02-06] MEDS: PANTOPRAZOLE 40 MG/10 ML VIAL IV SCH ×2 (09:18→21:17)
[2021-02-06] MEDS: SENNOSIDES-DOCUSATE SODIUM 1 EACH TAB PO SCH ×2 (09:18→21:20)
[2021-02-06] MEDS: polyethylene glycoL 3350 17 GM POWD.PACK PO SCH (09:18)
[2021-02-06 10:33] LABS: African American GFR (CKD) >90 (>60 ml/min/1.73 sqM); Anion Gap 9 mmol/L; Blood Urea Nitrogen 20 mg/dL (9-20); Calcium 9.5 mg/dL (8.4-10.2); Carbon Dioxide 28 mmol/L (22-30); Chloride 96 mmol/L (98-107); Glucose 81 mg/dL (74-99); Non-African American GFR(CKD) >90 (>60 ml/min/1.73 sqM); Potassium 4.7 mmol/L (3.5-5.1); Sodium 133 mmol/L (137-145)
[2021-02-06] MEDS: HYDROmorphone 0.5 MG/0.5 ML SYRINGE IVP PRN (12:26)
--- NOTE | 2021-02-06 13:18 | MR ---
EXAMINATION TYPE: MR thoracic spine wo/w con DATE OF EXAM: 02/06/2021 COMPARISON: None HISTORY: Cord compression CONTRAST: Performed utilizing 0 mL intravenous Gadavist gadolinium contrast. TECHNIQUE: Multiplanar, multiecho imaging on a 3.0 Maeve magnet is performed through the thoracic spi ne. Spinal cord maintains normal signal through its visualized course. Vertebral body alignment is normal. Mild T9 vertebral body narrowing may be present. Some inferior endplate changes at T8 may be present. Small Schmorl's nodes are noted through the lower thoracic spine. Disc heights are preserved. Multilevel disc desiccation is present. T4: The right pedicle, posterior lateral right T4, transverse process and lamina have an expansile le bryson present which is contributing to canal compression. The right neural foramen appears severely na rrowed. AP spinal canal stenosis is not present. The tumor extension along the proximal right rib may be present. T9: There is replacement of the T9 vertebral level. Expansile lesion extends into the spinal canal wi th moderate intrathecal sac compression. This comes in close approximation with the spinal cord. AP s kezia canal stenosis is not present. Right foraminal stenosis is present. There is some extension of the bone lesion into the pedicle. IMPRESSIONS: 1. Metastatic lesions notably at T4 and T9. There is moderate right side canal impression at T4 and m oderate anterior thecal sac compression at T9. Cord contact or cord deformity however is not evident. No stenosis of the spinal canal evident. Foraminal stenosis on the right at T4-T5 and T9-T10 is pres ent.
[2021-02-06 13:22] LABS: Glucose,Whole Blood 83 mg/dL (75-99)
--- NOTE | 2021-02-06 15:18 | P.PN ---
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 Oncology along with neurology and radiation oncology following. Patient is scheduled for nuclear bone scan which is pending at this time. Will await report. Patient did have an MRI of the brain which showed multiple lesions. Neurology evaluated the patient and patient underwent eeg showing abnormal with slowing in the background which could indicate mild encephalopathy. Patient denies any chest pain or shortness of breath. Awaiting adrenal biopsy results. 02/05/2021 Patient is seen in follow up and continues to be confused at times stating that he is not being told what the plan is about his care and he is stating that he would like to go home. Patient is currently maintained on high dose steroids and will monitor blood sugars because of this. Oncology along with neurology and radiation oncology following. Patient oral intake is fair and denies any nausea or vomiting, just having some mild constipation but denies any abdominal discomfort. Oncology following and working with son Luis about obtaining power of daycare teacher as patient continues to be confused not able to make sound decisions. Social work consult placed. Case management made aware of the situation. Radiation oncology following and discussing possible palliative treatment to the large lesions noted on T9 and T4 that was noted on the bone scan. Sodium slightly low at 132. Pathology report of the adrenal biopsy pending still at this time. 02/06/2021 Patient is seen this morning continues to request to go home. Oncology and radiation oncology following along with social work. Son was attempting to regain power of daycare teacher as he feels his father is not making sound decisions and continues to be confused and not understanding his prognosis. Prognosis is poor with metastasis to the brain along with lesions noted on the spine with spinal cord involvement. Radiation oncology following and planning on mapping for palliative radiation treatments. Basic metabolic panel within normal limits today. Patient denies any chest pain, shortness of breath, or palpitations. Continue with pain management and will continue to monitor closely. Plans are to return home with significant other and follow-up outpatient with radiation oncology along with oncology once plan is in place. Anticipate discharge in 24 hours. Review of systems: Constitutional: reports of fatigue, no reports of fever, or chills Cardiovascular: No reports of chest pain or palpitations Respiratory: No reports of shortness of breath or cough GI: No reports of nausea, vomiting, or diarrhea : No reports of dysuria or retention Neurovascular: reports of generalized weakness All medications have been reviewed PHYSICAL EXAM: Gen: This is a 65-year-old male sitting up at the side of the bed awake, alert and oriented 3, thin built. HEENT: Head is atraumatic, normocephalic. Pupils equal, round. Sclerae is anicteric. NECK: Supple. No JVD. No lymphadenopathy. No thyromegaly. LUNGS: diminished breath sounds bilaterally with some scattered rhonchi noted. No intercostal retractions. HEART: S1, S2 muffled ABDOMEN: Soft. Bowel sounds are present. No masses. No tenderness. EXTREMITIES: No pedal edema. No calf tenderness. NEUROLOGICAL: Patient is awake, alert and oriented x3. Cranial nerves 2 through 12 are grossly intact. 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 Patient underwent MRI of the spine to assess multiple lesions noted on bone scan. Oncology and radiation oncology following. Oncology had a detailed discussion with family who is also working on obtaining power of daycare teacher as they feel their father is not making appropriate choices and decisions regarding care. Radiation oncology following and working on mapping for palliative radiation treatments outpatient. Labs within normal limits today. Will continue to monitor closely and anticipate discharge home in 24 hours. This was discussed in detail with oncology and would like to complete the mapping for radiation treatments moving forward prior to discharge. Prognosis remains poor and guarded. Objective - Vital Signs Vital signs: Vital Signs Temp 97.8 F 02/06/21 05:42 Pulse 50 L 02/06/21 05:42 Resp 16 02/06/21 05:42 BP 106/56 02/06/21 05:42 Pulse Ox 98 02/06/21 05:42 Intake & Output 02/05/21 02/06/21 02/06/21 18:59 06:59 18:59 Intake Total 240 Balance 240 Intake: Oral 240 Other: Voiding Method Toilet # Voids 2 - Labs CBC & Chem 7: 02/05/21 07:22 07/21/21 08:41 Labs: Abnormal Lab Results - Last 24 Hours (Table) 02/05/21 02/05/21 02/05/21 Range/Units 11:59 17:01 20:28 POC Glucose (mg/dL) 111 H 121 H 169 H (75-99) mg/dL 02/06/21 Range/Units 07:05 POC Glucose (mg/dL) 113 H (75-99) mg/dL
[2021-02-06 17:34] LABS: Glucose,Whole Blood 119 mg/dL (75-99)
--- NOTE | 2021-02-06 18:03 | P.PN ---
Subjective Progress Note Date: 02/06/21 Principal diagnosis: Metastatic Cancer Long discussion with patient and patients two sons today. We discussed overall diagnosis, prognosis, goals of treatment, further testing on pathology (molecular testing) the role of radiation therapy, the role of dexamethasone and PPI, pain management and bowel regiment prophylaxis for narcotic induced constipation risk. Greater than 35 minutes spent with patient and family today and all questions answered to the best of my capability. Treatment goals are palliaitive in nature to improve quality of life and in turn prolong quantity. D isease is incurable. Objective - Vital Signs Vital signs: Vital Signs Temp 97.8 F 02/06/21 05:42 Pulse 50 L 02/06/21 05:42 Resp 16 02/06/21 05:42 BP 106/56 02/06/21 05:42 Pulse Ox 98 02/06/21 05:42 Intake & Output 02/05/21 02/06/21 02/06/21 18:59 06:59 18:59 Intake Total 240 Balance 240 Intake: Oral 240 Other: Voiding Method Toilet # Voids 2 - Exam - Constitutional General appearance: cooperative, no acute distress - EENT Eyes: EOMI ENT: hard of hearing, NA/AT - Respiratory Respiratory: bilateral: diminished - Gastrointestinal General gastrointestinal: soft, tenderness - Integumentary Integumentary: pale - Neurologic Neurologic: CNII-XII intact - Musculoskeletal Musculoskeletal: generalized weakness - Psychiatric Psychiatric: A&O x's - Labs CBC & Chem 7: 02/05/21 07:22 02/06/21 08:41 Labs: Abnormal Lab Results - Last 24 Hours (Table) 02/05/21 02/05/21 02/05/21 Range/Units 11:59 17:01 20:28 Sodium (137-145) mmol/L Chloride (98-107) mmol/L POC Glucose (mg/dL) 111 H 121 H 169 H (75-99) mg/dL 02/06/21 02/06/21 Range/Units 07:05 08:41 Sodium 133 L (137-145) mmol/L Chloride 96 L (98-107) mmol/L POC Glucose (mg/dL) 113 H (75-99) mg/dL Assessment and Plan (1) Constipation Current Visit: Yes Status: Acute Code(s): K59.00 - CONSTIPATION, UNSPECIFIED SNOMED Code(s): 32495021 (2) Left adrenal mass Current Visit: Yes Status: Acute Code(s): E27.8 - OTHER SPECIFIED DISORDERS OF ADRENAL GLAND SNOMED Code(s): 189898276 (3) Prostate CA Current Visit: Yes Status: Acute Code(s): C61 - MALIGNANT NEOPLASM OF PROSTATE SNOMED Code(s): 976009030 (4) Abdominal pain Current Visit: Yes Status: Acute Code(s): R10.9 - UNSPECIFIED ABDOMINAL PAIN SNOMED Code(s): 46689412 (5) Lung mass Current Visit: Yes Status: Acute Code(s): R91.8 - OTHER NONSPECIFIC ABNORMAL FINDING OF LUNG FIELD SNOMED Code(s): 655657886 Plan: Pallaiitive Pain Controll and scheduled bowel regimen for narcotic induced constipation Biopsy of left adrenal mass -Await Path MRI - Suspicious fro metastatic disease IV DIlaudid for fast acting at this time and Fentanyl long acting patch increased today CT scan of chest was reviewed: Right suprahilar 5x5cm mass revealed as well as thoracic adenopathy. Interventional radiology has been consulted, he has been made NPO after midnight and a biopsy of left adrenal mass and lung mass (primary importance for tissue biopsy) has been requested for Thursday. With history of prostate cancer obtaining biopsy of adrenal met would be beneficial to confirm metastatic malignancy source if a diagnosis of two primary cancers found. An MRI of the brain has also been ordered. Bone scan: Thoracic lesion with concern of invasion to canal - MRI pending With increased confusion and retaining information (patient stated he was in hospital for heart issues) we have increased dexamethasone 6mg IV q6 Status Post biopsy of Adrenal Mass 7.16.21- Path is pending although preliminary appears to be non-small cell (unknown subtype) Discussed concern for metastatic disease to brain, continue dexamethasone, PPI and await recs from radiation oncology Long discussion with patient's son, consult for social media content manager to follow-up and assist with DPOA paperwork. Patient is aware this is likely a treated situation, not curable. Given the metastatic disease to brain and spine. Sons at bedside and long discussion to answer their questions Plan was for outpatient radiation at [facility] after discharge, however after further discussion with Dr. Pacheco, patient and patients son, and primary team plan is to initiate treatment with radiation here and he will follow up with treatment through [place] office and infusion. Physician Attest: I have completed the full history and physical and agree with above dictation, dictated as a scribe
[2021-02-06] MEDS: HYDROcodone/APAP 5-325MG 1 EACH TAB PO PRN (19:32)
[2021-02-06 20:01] LABS: Glucose,Whole Blood 191 mg/dL (75-99)
[2021-02-07] MEDS: DEXAMETHASONE SOD PHOSPHATE 10 MG/ML 1 ML VIAL IV SCH ×2 (06:20→12:45)
[2021-02-07 07:01] LABS: Glucose,Whole Blood 105 mg/dL (75-99)
[2021-02-07] MEDS: INSULIN ASPART (NovoLOG) 100 UNIT/ML VIAL SQ SCH ×2 (07:09→12:48)
[2021-02-07] MEDS: HEPARIN SODIUM,PORCINE/PF 5,000 UNIT/0.5 ML SYRINGE SQ SCH (09:40)
[2021-02-07] MEDS: HYDROcodone/APAP 5-325MG 1 EACH TAB PO PRN (09:59)
[2021-02-07] MEDS: PANTOPRAZOLE 40 MG/10 ML VIAL IV SCH (10:00)
[2021-02-07] MEDS: NICOTINE 14MG/24HR PATCH TRANSDERM SCH (10:00)
[2021-02-07] MEDS: NYSTATIN 100,000 UNIT/ML SUSP 500,000 UNIT/5 ML CUP PO SCH ×2 (10:00→12:40)
[2021-02-07 12:32] LABS: Glucose,Whole Blood 102 mg/dL (75-99)
[2021-02-07 12:34] VITALS: BP 110/56; PULSE 63; RESP 17; TEMP 98
[2021-02-07] MEDS: polyethylene glycoL 3350 17 GM POWD.PACK PO SCH (12:37)
[2021-02-07] MEDS: SENNOSIDES-DOCUSATE SODIUM 1 EACH TAB PO SCH (12:37)
--- NOTE | 2021-02-07 14:45 | P.PN ---
Subjective Progress Note Date: 02/07/21 Principal diagnosis: Metastatic Cancer Patient headed to radiation for simulation this am Objective - Vital Signs Vital signs: Vital Signs Temp 98 F 02/07/21 12:33 Pulse 63 02/07/21 12:33 Resp 17 02/07/21 12:33 BP 110/56 02/07/21 12:33 Pulse Ox 100 02/07/21 12:33 Intake & Output 02/06/21 02/07/21 02/07/21 18:59 06:59 18:59 Intake Total 600 590 Balance 600 590 Weight 58.06 kg Intake: Oral 600 590 Other: Voiding Method Toilet Toilet # Voids 2 - Exam - Constitutional General appearance: cooperative, no acute distress - EENT Eyes: EOMI ENT: hard of hearing, NA/AT - Respiratory Respiratory: bilateral: diminished - Gastrointestinal General gastrointestinal: soft, tenderness - Integumentary Integumentary: pale - Neurologic Neurologic: CNII-XII intact - Musculoskeletal Musculoskeletal: generalized weakness - Psychiatric Psychiatric: A&O x's - Labs CBC & Chem 7: 02/05/21 07:22 02/06/21 08:41 Labs: Abnormal Lab Results - Last 24 Hours (Table) 02/06/21 02/06/21 02/07/21 Range/Units 17:32 19:59 06:58 POC Glucose (mg/dL) 119 H 191 H 105 H (75-99) mg/dL 02/07/21 Range/Units 12:27 POC Glucose (mg/dL) 102 H (75-99) mg/dL Assessment and Plan (1) Constipation Current Visit: Yes Status: Acute Code(s): K59.00 - CONSTIPATION, UNSPECIFIED SNOMED Code(s): 34998677 (2) Left adrenal mass Current Visit: Yes Status: Acute Code(s): E27.8 - OTHER SPECIFIED DISORDERS OF ADRENAL GLAND SNOMED Code(s): 811895892 (3) Prostate CA Current Visit: Yes Status: Acute Code(s): C61 - MALIGNANT NEOPLASM OF PROSTATE SNOMED Code(s): 508136555 (4) Abdominal pain Current Visit: Yes Status: Acute Code(s): R10.9 - UNSPECIFIED ABDOMINAL PAIN SNOMED Code(s): 53971888 (5) Lung mass Current Visit: Yes Status: Acute Code(s): R91.8 - OTHER NONSPECIFIC ABNORMAL FINDING OF LUNG FIELD SNOMED Code(s): 119019581 Plan: Pallaiitive Pain Controll and scheduled bowel regimen for narcotic induced constipation Biopsy of left adrenal mass -Await Path MRI - Suspicious fro metastatic disease IV DIlaudid for fast acting at this time and Fentanyl long acting patch increased today CT scan of chest was reviewed: Right suprahilar 5x5cm mass revealed as well as thoracic adenopathy. Interventional radiology has been consulted, he has been made NPO after midnight and a biopsy of left adrenal mass and lung mass (primary importance for tissue biopsy) has been requested for Thursday. With history of prostate cancer obtaining biopsy of adrenal met would be beneficial to confirm metastatic malignancy source if a diagnosis of two primary cancers found. An MRI of the brain has also been ordered. Bone scan: Thoracic lesion with concern of invasion to canal - MRI pending With increased confusion and retaining information (patient stated he was in hospital for heart issues) we have increased dexamethasone 6mg IV q6 Status Post biopsy of Adrenal Mass 7.16.21- Path is pending although preliminary appears to be non-small cell (unknown subtype) Discussed concern for metastatic disease to brain, continue dexamethasone, PPI and await recs from radiation oncology Long discussion with patient's son, consult for social services manager to follow-up and assist with DPOA paperwork. Patient is aware this is likely a treated situation, not curable. Given the metastatic disease to brain and spine. Sons at bedside and long discussion to answer their questions Plan was for outpatient radiation at [facility] after discharge, however after further discussion with Dr. Pacheco, patient and patients son, and primary team plan is to initiate treatment with radiation here and he will follow up with treatment through [place] office and infusion. - Will set patient up to see Dr. Cohen next week in [facility] [place] [facility], plan for molecular testing on pathology for targeted therapy options and treatment options to be dicussed at that time Mediation at discharge from onc - Dexamethasone 4mg q6 hours taper per radiation onc - Omeprazole 20mg po BID - COntinue Fentanyl Patch and [place] for pain - COntinue Senna-S 2 tabs twice a day and miralax qam
--- NOTE | 2021-02-07 16:36 | P.DS ---
Providers Date of admission: 01/31/21 12:11 Attending physician: Cristo Packer Consults: 01/31/21 12:12 Consult Physician Routine Consulting Provider: Evaristo Cohen Consult Reason/Comments: intractable abdominal pain, liver mass Do you want consulting provider notified?: Yes 02/01/21 19:33 Consult Physician Routine Consulting Provider: Basil Jackson Consult Reason/Comments: brain lesions, prostate cancer history Do you want consulting provider notified?: Yes, Notify in am 02/01/21 20:31 Consult Physician Routine Consulting Provider: Toy Pacheco Consult Reason/Comments: metastatic cancer through brain Do you want consulting provider notified?: Yes Primary care physician: [facility] Course: This is a 65-year-old male who was recently admitted with abdominal pain with po ssible adrenal metastatic malignancy and is being closely monitored. Oncology along with neurology and radiation oncology following. Patient is scheduled for nuclear bone scan which is pending at this time. Will await report. Patient did have an MRI of the brain which showed multiple lesions. Neurology evaluated the patient and patient underwent eeg showing abnormal with slowing in the background which could indicate mild encephalopathy. Patient denies any chest pain or shortness of breath. Awaiting adrenal biopsy results. 02/05/2021 Patient is seen in follow up and continues to be confused at times stating that he is not being told what the plan is about his care and he is stating that he would like to go home. Patient is currently maintained on high dose steroids and will monitor blood sugars because of this. Oncology along with neurology and radiation oncology following. Patient oral intake is fair and denies any nausea or vomiting, just having some mild constipation but denies any abdominal discomfort. Oncology following and working with son Luis about obtaining power of commercial attorney as patient continues to be confused not able to make sound decisions. Social work consult placed. Case management made aware of the situation. Radiation oncology following and discussing possible palliative treatment to the large lesions noted on T9 and T4 that was noted on the bone scan. Sodium slightly low at 132. Pathology report of the adrenal biopsy pending still at this time. 02/06/2021 Patient is seen this morning continues to request to go home. Oncology and radiation oncology following along with social work. Son was attempting to regain power of commercial attorney as he feels his father is not making sound decisions and continues to be confused and not understanding his prognosis. Prognosis is poor with metastasis to the brain along with lesions noted on the spine with spinal cord involvement. Radiation oncology following and planning on mapping for palliative radiation treatments. Basic metabolic panel within normal limits today. Patient denies any chest pain, shortness of breath, or palpitations. Continue with pain management and will continue to monitor closely. Plans are to return home with significant other and follow-up outpatient with radiation oncology along with oncology once plan is in place. Anticipate discharge in 24 hours. 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 Patient received radiation therapy today patient will be discharged today and the will continue with outpatient radiation therapy. Patient is still hyponatremic probably SIADH, patient will be discharged on fluid restricted diet patient has opiate-induced constipation for which patient will be discharged on bowel regimen patient will be given prescription for fentanyl and the. PHYSICAL EXAM: Gen: This is a 65-year-old male sitting up at the side of the bed awake, alert and oriented 3, thin built. HEENT: Head is atraumatic, normocephalic. Pupils equal, round. Sclerae is anicteric. NECK: Supple. No JVD. No lymphadenopathy. No thyromegaly. LUNGS: diminished breath sounds bilaterally with some scattered rhonchi noted. No intercostal retractions. HEART: S1, S2 muffled ABDOMEN: Soft. Bowel sounds are present. No masses. No tenderness. EXTREMITIES: No pedal edema. No calf tenderness. NEUROLOGICAL: Patient is awake, alert and oriented x3. Cranial nerves 2 through 12 are grossly intact. diffuse weakness ASSESSMENT: Abdominal pain with possible metastatic disease from adenocarcinoma of the lung. Has metastatic disease involving bone spine and brain for which patient is being discharged on oral Decadron with a slow taper and follow with oncology and patient will also receive radiation therapy Constipation secondary to opiates Multiple supratentorial and infratentorial enhancing lesions, MRA showing brain metastasis history of prostate cancer surgery Hyponatremia Patient Condition at Discharge: Stable Plan - Discharge Summary Discharge Rx Participant: Yes New Discharge Prescriptions: New fentaNYL 50MCG/HR PATCH [Duragesic 50MCG/HR] 1 patch TRANSDERM Q72H #3 patch HYDROcodone/APAP 5-325MG [Posey 5-325] 2 each PO Q6HR PRN #24 tab PRN Reason: Pain Sennosides-Docusate Sodium [Senokot-S] 2 each PO BID #30 tab Dexamethasone [Decadron] 4 mg PO TID #50 tablet Nicotine 14Mg/24Hr Patch [Habitrol] 1 patch TRANSDERM DAILY #14 patch polyethylene glycoL 3350 [Miralax] 17 gm PO DAILY PRN #30 powd.pack PRN Reason: Constipation Nystatin 100,000 Unit/ml Susp [Mycostatin Oral Susp] 500,000 unit PO QID #250 ml No Action traMADol HCl [Ultram] 100 mg PO DAILY traMADol HCl [Ultram] 50 mg PO BID@1500,2100 Discharge Medication List traMADol HCl [Ultram] 50 mg PO BID@1500,2100 01/31/21 [History] traMADol HCl [Ultram] 100 mg PO DAILY 01/31/21 [History] Dexamethasone [Decadron] 4 mg PO TID #50 tablet 02/07/21 [Rx] HYDROcodone/APAP 5-325MG [Posey 5-325] 2 each PO Q6HR PRN #24 tab 02/07/21 [Rx] Nicotine 14Mg/24Hr Patch [Habitrol] 1 patch TRANSDERM DAILY #14 patch 02/07/21 [Rx] Nystatin 100,000 Unit/ml Susp [Mycostatin Oral Susp] 500,000 unit PO QID #250 ml 02/07/21 [Rx] Sennosides-Docusate Sodium [Senokot-S] 2 each PO BID #30 tab 02/07/21 [Rx] fentaNYL 50MCG/HR PATCH [Duragesic 50MCG/HR] 1 patch TRANSDERM Q72H #3 patch 02/07/21 [Rx] polyethylene glycoL 3350 [Miralax] 17 gm PO DAILY PRN #30 powd.pack 02/07/21 [Rx] Follow up Appointment(s)/Referral(s): Kenny Matta MD [STAFF PHYSICIAN] - 1 Week (office will call patient with follow up appt. ) Stephanie Salcedo DO [Primary Care Provider] - 02/08/21 3:20 pm Patient Instructions/Handouts: Hydrocodone/Acetaminophen (By mouth), Nystatin (By mouth), Nicotine (Absorbed through the skin), Fentanyl (Absorbed through the skin), Dexamethasone (By mouth), Polyethylene Glycol 3350 (By mouth), Senna (By mouth), Chronic Abdominal Pain (ED) Activity/Diet/Wound Care/Special Instructions: activity limited until seen by Diet as tolerated 1500 mL fluid restriction Discharge Disposition: HOME SELF-CARE
== END 2021-02-07 17:00 | disposition home or self-care (01) | DRG 643 ==
LOC: EC 11:19 → 5NMEDONC 12:11
PROVIDERS: ADMIT Hospitalist; ATTEND Hospitalist
PROC: 0GB23ZX Excision of Left Adrenal Gland, Percutaneous Approach, Diagnostic (ICD-10-PCS; principal; 2021-02-01)
DX: C79.71 Secondary malignant neoplasm of right adrenal gland (principal); G93.6 Cerebral edema; C79.31 Secondary malignant neoplasm of brain; C79.51 Secondary malignant neoplasm of bone; C34.11 Malignant neoplasm of upper lobe, right bronchus or lung; E22.2 Syndrome of inappropriate secretion of antidiuretic hormone; E86.0 Dehydration; Z85.46 Personal history of malignant neoplasm of prostate; E27.9 Disorder of adrenal gland, unspecified; F17.210 Nicotine dependence, cigarettes, uncomplicated; Z79.52 Long term (current) use of systemic steroids; K59.03 Drug induced constipation; T40.605A Adverse effect of unspecified narcotics, initial encounter
CPT/HCPCS: 36415; 60699; 70551; 70552; 71260; 72157; 77012; 77280; 77290; 77307; 77334; 77412; 78306; 80048; 80053; 81003; 82150; 83690; 83735; 83930; 83935; 84153; 85025; 85610; 85730; 88305; 88341; 88342; 95816; 96374; 99285

== ENCOUNTER → 2021-04-19 | Outpatient (CLI) | payer OTHER | END | disposition home or self-care (01) | LOC: RADMRIMAIN 15:55 | PROVIDERS: ATTEND Radiology Radiation Oncology ==